=== PATIENT | male | born 1955 | race Caucasian/White ===

== ENCOUNTER 2016-11-08 18:20 | Emergency (ER) | payer MEDICARE ==
[2016-11-08] MEDS ORDERED: DIPH,PERTUS(ACELL)TETVAC-LF 0.5 ML VIAL IM ONE (18:38)
[2016-11-08 18:41] VITALS: BP 165/91; PULSE 84; RESP 16; TEMP 97.9
--- NOTE | 2016-11-08 18:51 | XR ---
EXAMINATION TYPE: XR hand complete LT DATE OF EXAM: 11/08/2016 CLINICAL HISTORY: Laceration from house scattered TECHNIQUE: Frontal, lateral and oblique images of the left hand are obtained. COMPARISON: None. FINDINGS: There is no acute fracture/dislocation evident in the left hand. The joint spaces in the l eft hand appear within normal limits. The overlying soft tissue appears unremarkable. No radiopaque foreign bodies are evident. Soft tissues appear normal. IMPRESSION: There is no acute fracture or dislocation in the left hand.
--- NOTE | 2016-11-08 19:09 | ED ---
Wound/Laceration HPI - General Stated Complaint: laceration Time Seen by Provider: 11/08/16 18:33 Source: patient, RN notes reviewed Mode of arrival: ambulatory Limitations: no limitations - History of Present Illness Initial Comments: 61-year-old male presents emergency Department chief complaint of laceration to the left thumb. Patient states he cut it on a tool today. Patient does not recall his last tetanus. Patient states he hasn't had any other symptoms at this. Patient states he has full range of motion of the thumb. Patient any history of this in the past. Patient states he is concerned due to symptoms. He should be evaluated. Patient denies any recent fever, chills, shortness of breath, chest pain, back pain, abdominal pain, nausea vomiting, numbness or tingling, dysuria or hematuria, constipation or diarrhea, headaches or visual changes, or any other current symptoms. - Related Data Home Medications Medication Instructions Recorded Confirmed tiZANidine [Zanaflex] 4 mg PO TID 03/27/15 04/08/16 traZODone HCL [Desyrel] 150 mg PO HS 03/27/15 04/08/16 Aspirin EC [Ecotrin] 162 mg PO DAILY 04/04/16 04/08/16 Atorvastatin [Lipitor] 80 mg PO HS 04/04/16 04/08/16 Clopidogrel [Plavix] 75 mg PO DAILY 04/04/16 04/08/16 HYDROcodone/APAP 10-325MG [Hart 1 tab PO Q6H PRN 04/04/16 04/08/16 10-325] Previous Rx's Medication Instructions Recorded Metoprolol Tartrate [Lopressor] 12.5 mg PO BID #60 tab 03/30/15 Nitroglycerin Sl Tabs [Nitrostat] 0.4 mg SUBLINGUAL Q5M PRN #25 tab 03/30/15 Allergies Allergy/AdvReac Type Severity Reaction Status Date / Time oxycodone HCl Allergy Unknown Verified 11/08/16 18:41 [From Roxicodone] Review of Systems ROS Statement: Those systems with pertinent positive or pertinent negative responses have been documented in the HPI. ROS Other: All systems not noted in ROS Statement are negative. Past Medical History Past Medical History: Myocardial Infarction ([place]), Osteoarthritis (OA), Pneumonia Additional Past Medical History / Comment(s): Carotid stenosis, DDD Last Myocardial Infarction Date:: 2014 History of Any Multi-Drug Resistant Organisms: None Reported Past Surgical History: Back Surgery, Heart Catheterization With Stent Additional Past Surgical History / Comment(s): Multiple back surgeries., pain procedures, cataract surg. Past Anesthesia/Blood Transfusion Reactions: No Reported Reaction Date of Last Stent Placement:: 2014 Past Psychological History: No Psychological Hx Reported Smoking Status: Current every day smoker Past Alcohol Use History: None Reported Past Drug Use History: None Reported - Past Family History Mother Family Medical History: Cancer Additional Family Medical History / Comment(s): knees replaced, breast CA Father Family Medical History: Cancer Additional Family Medical History / Comment(s): pulmonary fibrosis General Exam - General Exam Comments Initial Comments: General: The patient is awake and alert, in no distress, and does not appear acutely ill. Neck: The neck is supple, there is no tenderness. Cardiovascular: There is a regular rate and rhythm. No murmur, rub or gallop is appreciated. Respiratory: Lungs are clear to auscultation, respirations are non-labored, breath sounds are equal. No wheezes, stridor, rales, or rhonchi. Musculoskeletal: Sensation intact with 2+ pulses at the left upper extremity. Full range of motion of left hand and wrist. Patient does appear to have a 3 cm laceration over the left thumb. 5 out of 5 muscle strength testing. Less than 2 capillary refill. Neurological: CN II-XII intact, There are no obvious motor or sensory deficits. Coordination appears grossly intact. Speech is normal. Skin: Skin is warm and dry and no rashes or lesions are noted. Psychiatric: Normal mood and affect. Limitations: no limitations Course Vital Signs 11/08/16 18:37 Temperature 97.9 F Pulse Rate 84 Respiratory 16 Rate Blood Pressure 165/91 O2 Sat by Pulse 96 Oximetry Procedures - Procedures Initial comment: The skin was anesthetized with 1% lidocaine. The laceration was then cleansed with Betadine and irrigated with normal saline. The wound was inspected, and there was no evidence of injury to deep structures. No foreign body was noted in the wound. A total of 7 skin sutures were placed utilizing 5-0 nylon to a left thumb laceration that is 4 cm. Medical Decision Making - Medical Decision Making 61-year-old male presents emergency Department chief complaint of left thumb laceration. This time patient underwent suture care we discussed return parameters all panel patient's questions. He stated he understood and agreed with plan. He will be discharged. - Radiology Data Radiology results: report reviewed, image reviewed Disposition Clinical Impression: Laceration of left thumb Disposition: HOME SELF-CARE Condition: Stable Instructions: Laceration (ED) Additional Instructions: Please use medication as discussed. Please follow up with family doctor if symptoms have not improved over the next two days. Please return to the emergency room if your symptoms increase or worsen or for any other concerns. Please return to the emergency room in 8-10 days to have sutures removed. Please leave wound covered for the first 24-48 hours and then leave open to air after that time. Please use clean soap and water to clean the suture area to prevent scabbing over the top of your sutures. Please watch for any signs of infection which may include but not limited to increased pain, swelling, redness , fever or chills. Please return to the emergency room if any signs of infection do occur. Please return to the emergency room for any other concerns or complications. Referrals: Uzair Michaud DO [STAFF PHYSICIAN] - 1-2 days Time of Disposition: 19:09
== END 2016-11-08 19:18 | disposition home or self-care (01) ==
LOC: EC 18:20
DX: S61.012A Laceration without foreign body of left thumb without damage to nail, initial encounter (principal); I25.2 Old myocardial infarction; M19.90 Unspecified osteoarthritis, unspecified site; F17.200 Nicotine dependence, unspecified, uncomplicated; Z23 Encounter for immunization; Z79.02 Long term (current) use of antithrombotics/antiplatelets; Z79.899 Other long term (current) drug therapy; Z88.5 Allergy status to narcotic agent; Z79.82 Long term (current) use of aspirin; Z95.5 Presence of coronary angioplasty implant and graft; W45.8XXA Other foreign body or object entering through skin, initial encounter
CPT/HCPCS: 12002; 90471; 90715; 99283

== ENCOUNTER 2017-08-29 10:22 | Emergency (ER) | payer MEDICARE ==
[2017-08-29 10:27] VITALS: RESP 18
[2017-08-29] MEDS ORDERED: KETOROLAC 30 MG/ML 1 ML VIAL IVP STA (10:53)
[2017-08-29] MEDS ORDERED: SODIUM CHLORIDE 0.9% 1,000 ML IV STA ×2 (10:53)
[2017-08-29] MEDS ORDERED: ORPHENADRINE 30 MG/ML 2 ML VIAL IVP STA (10:54)
--- NOTE | 2017-08-29 10:59 | ED ---
Back Pain HPI - General Chief Complaint: Back Pain/Injury Stated Complaint: Back Pain Time Seen by Provider: 08/29/17 10:42 Source: patient, RN notes reviewed Limitations: no limitations - History of Present Illness Initial Comments: This is a 62-year-old male with a history of chronic low back pain and history of 3 prior surgeries also a history of heart disease with stent placement in the past who states he's had 4 days of low back pains got progressively worse is now over 10/10 severity sharp in nature and does radiate down both buttock. It also radiates to the legs. He does not recall any new injury coughing sneezing twisting turning. He states his pain medication at home was not helping. He states he has been offered a fusion in the past of the sacral region but has elected instead to do outpatient treatment including rhizotomies and epidurals. The pain gets worse with movement and is not relieved with rest he denies any loss of function however to his upper or lower extremities he has chronic constipation from his pain medication but did not does not have any new incontinence of urine or feces. His did note that his feet were swollen this morning. He was getting some pain radiating down into his calf. MD Complaint: back pain - Related Data Home Medications Medication Instructions Recorded Confirmed tiZANidine [Zanaflex] 4 mg PO TID 03/27/15 08/29/17 Aspirin EC [Ecotrin] 325 mg PO DAILY 04/04/16 08/29/17 Atorvastatin [Lipitor] 80 mg PO HS 04/04/16 08/29/17 Clopidogrel [Plavix] 75 mg PO DAILY 04/04/16 08/29/17 HYDROcodone/APAP 10-325MG [[place] 1 tab PO Q6H PRN 04/04/16 08/29/17 10-325] Gabapentin [Neurontin] 100 mg PO TID 08/29/17 08/29/17 traZODone HCL 150 mg PO HS 08/29/17 08/29/17 Previous Rx's Medication Instructions Recorded Nitroglycerin Sl Tabs [Nitrostat] 0.4 mg SUBLINGUAL Q5M PRN #25 tab 03/30/15 Cyclobenzaprine [Flexeril] 10 mg PO TID #14 tab 08/29/17 methylPREDNISolone Dose Pack 4 mg PO DIRECTED #21 package 04/06/18 [Medrol Dose Pack] Allergies Allergy/AdvReac Type Severity Reaction Status Date / Time oxycodone HCl Allergy Unknown Verified 08/29/17 10:39 [From Roxicodone] Review of Systems ROS Statement: Those systems with pertinent positive or pertinent negative responses have been documented in the HPI. ROS Other: All systems not noted in ROS Statement are negative. Past Medical History Past Medical History: Myocardial Infarction ([place]), Osteoarthritis (OA), Pneumonia Additional Past Medical History / Comment(s): Carotid stenosis, DDD Last Myocardial Infarction Date:: 2014 History of Any Multi-Drug Resistant Organisms: None Reported Past Surgical History: Back Surgery, Heart Catheterization With Stent Additional Past Surgical History / Comment(s): Multiple back surgeries., pain procedures, cataract surg. Past Anesthesia/Blood Transfusion Reactions: No Reported Reaction Date of Last Stent Placement:: 2014 Past Psychological History: No Psychological Hx Reported Smoking Status: Current every day smoker Past Alcohol Use History: None Reported Past Drug Use History: None Reported - Past Family History Mother Family Medical History: Cancer Additional Family Medical History / Comment(s): knees replaced, breast CA Father Family Medical History: Cancer Additional Family Medical History / Comment(s): pulmonary fibrosis General Exam - General Exam Comments Initial Comments: This is a well-developed well-nourished awake alert oriented 3 male Limitations: no limitations General appearance: alert, anxious, in distress Head exam: Present: atraumatic, normocephalic, normal inspection Eye exam: Present: normal appearance, PERRL, EOMI. Absent: scleral icterus, conjunctival injection, periorbital swelling ENT exam: Present: normal exam, mucous membranes moist Neck exam: Present: normal inspection. Absent: tenderness, meningismus, lymphadenopathy Respiratory exam: Present: normal lung sounds bilaterally. Absent: respiratory distress, wheezes, rales, rhonchi, stridor Cardiovascular Exam: Present: regular rate, normal rhythm, normal heart sounds. Absent: systolic murmur, diastolic murmur, rubs, gallop, clicks GI/Abdominal exam: Present: soft, normal bowel sounds. Absent: distended, tenderness, guarding, rebound, rigid Rectal exam: Present: deferred Extremities exam: Present: normal inspection, full ROM, normal capillary refill , other (No palpable cords I do not appreciate edema on my exam.). Absent: tenderness, pedal edema, joint swelling, calf tenderness Back exam: Present: normal inspection, tenderness, muscle spasm, paraspinal tenderness, other (It is both gluteus muscles.). Absent: full ROM, vertebral tenderness Neurological exam: Present: alert, oriented X3, CN II-XII intact Psychiatric exam: Present: normal affect, normal mood Skin exam: Present: warm, dry, intact, normal color. Absent: rash Course Vital Signs 08/29/17 08/29/17 10:25 12:44 Temperature 97.2 F L Pulse Rate 75 63 Respiratory 18 18 Rate Blood Pressure 138/65 116/57 O2 Sat by Pulse 99 97 Oximetry Medical Decision Making - Medical Decision Making I did reassess the patient several occasions he is finally getting some relief. He will be discharged home he is follow-up with his doctor for further treatment. Patient does have adequate pain medication at home we also put some muscle relaxers and a steroid Dosepak - Lab Data Result diagrams: 08/29/17 11:00 08/29/17 11:00 Lab Results 08/29/17 08/29/17 08/29/17 Range/Units 11:00 11:00 11:00 WBC 7.4 (3.8-10.6) k/uL RBC 4.20 L (4.30-5.90) m/uL Hgb 12.8 L (13.0-17.5) gm/dL Hct 37.4 L (39.0-53.0) % MCV 89.1 (80.0-100.0) fL MCH 30.6 (25.0-35.0) pg MCHC 34.3 (31.0-37.0) g/dL RDW 12.8 (11.5-15.5) % Plt Count 153 (150-450) k/uL Neutrophils % 65 % Lymphocytes % 28 % Monocytes % 4 % Eosinophils % 1 % Basophils % 1 % Neutrophils # 4.8 (1.3-7.7) k/uL Lymphocytes # 2.1 (1.0-4.8) k/uL Monocytes # 0.3 (0-1.0) k/uL Eosinophils # 0.1 (0-0.7) k/uL Basophils # 0.0 (0-0.2) k/uL D-Dimer 0.53 (<0.60) mg/L FEU Sodium 140 (137-145) mmol/L Potassium 4.6 (3.5-5.1) mmol/L Chloride 107 (98-107) mmol/L Carbon Dioxide 23 (22-30) mmol/L Anion Gap 10 mmol/L BUN 20 (9-20) mg/dL Creatinine 1.12 (0.66-1.25) mg/dL Est GFR (CKD-EPI)AfAm 82 (>60 ml/min/1.73 sqM) Est GFR (CKD-EPI)NonAf 71 (>60 ml/min/1.73 sqM) Glucose 88 (74-99) mg/dL Calcium 9.0 (8.4-10.2) mg/dL Magnesium 2.1 (1.6-2.3) mg/dL Total Bilirubin 0.2 (0.2-1.3) mg/dL AST 19 (17-59) U/L ALT 25 (21-72) U/L Alkaline Phosphatase 103 (38-126) U/L Total Protein 6.1 L (6.3-8.2) g/dL Albumin 3.6 (3.5-5.0) g/dL Disposition Clinical Impression: Mechanical back pain, Sciatica, Acute exacerbation of chronic low back pain Disposition: HOME SELF-CARE Condition: Good Instructions: Acute Low Back Pain (ED), Chronic Back Pain (ED), Sciatica (ED) Prescriptions: Cyclobenzaprine [Flexeril] 10 mg PO TID #14 tab methylPREDNISolone Dose Pack [Medrol Dose Pack] 4 mg PO DIRECTED #21 package Referrals: Oseas Hancock DO [Primary Care Provider] - 1-2 days
[2017-08-29 11:39] LABS: Basophils % (A) 1 %; Eosinophils # (A) 0.1 k/uL (0-0.7); Eosinophils % (A) 1 %; HCT 37.4 % (39.0-53.0); HGB 12.8 gm/dL (13.0-17.5); Lymphocytes # (A) 2.1 k/uL (1.0-4.8); Lymphocytes % (A) 28 %; MCH 30.6 pg (25.0-35.0); MCHC 34.3 g/dL (31.0-37.0); MCV 89.1 fL (80.0-100.0); Mean Platelet Volume 6.9; Monocytes # (A) 0.3 k/uL (0-1.0); Monocytes % (A) 4 %; Neutrophils # (A) 4.8 k/uL (1.3-7.7); Neutrophils % (A) 65 %; Platelet Count 153 k/uL (150-450); RDW 12.8 % (11.5-15.5); WBC 7.4 k/uL (3.8-10.6)
[2017-08-29 11:53] LABS: Albumin 3.6 g/dL (3.5-5.0); Magnesium 2.1 mg/dL (1.6-2.3); Potassium 4.6 mmol/L (3.5-5.1); Total Bilirubin 0.2 mg/dL (0.2-1.3); Total Protein 6.1 g/dL (6.3-8.2)
[2017-08-29] MEDS ORDERED: DEXAMETHASONE SOD PHOSPHATE 10 MG/ML 1 ML VIAL IV STA (12:25)
[2017-08-29] MEDS ORDERED: fentaNYL (PF) 50 MCG/ML 2 ML AMP IV STA (12:26)
[2017-08-29 13:42] VITALS: BP 133/61; PULSE 72; TEMP 97.8
== END 2017-08-29 13:45 | disposition home or self-care (01) ==
LOC: EC 10:22
DX: M54.40 Lumbago with sciatica, unspecified side (principal); M79.89 Other specified soft tissue disorders; F17.200 Nicotine dependence, unspecified, uncomplicated; M19.90 Unspecified osteoarthritis, unspecified site; I25.2 Old myocardial infarction; K59.00 Constipation, unspecified; M62.830 Muscle spasm of back; Z87.39 Personal history of other diseases of the musculoskeletal system and connective tissue; Z88.5 Allergy status to narcotic agent; Z79.82 Long term (current) use of aspirin; Z79.899 Other long term (current) drug therapy; Z79.02 Long term (current) use of antithrombotics/antiplatelets; Z98.890 Other specified postprocedural states
CPT/HCPCS: 99283; 96374; 96375 ×3; 96361; 36415; 85379; 80053; 83735; 85025; J1100; J2360; J3010; J1885

== ENCOUNTER → 2017-09-04 | Outpatient (CLI) | payer MEDICARE ==
--- NOTE | 2017-09-05 07:24 | MR ---
EXAMINATION TYPE: MR lumbar spine wo/w con DATE OF EXAM: 09/04/2017 COMPARISON: MRI lumbar spine November 21, 2005. HISTORY: HNP and Lumbar radiculopathy per order. Low back pain for 10 days with history of 3 prior vazquez rgeries most recently 2013 TECHNIQUE: Multiplanar, multisequence images of the lumbar spine is performed without and with IV contrast, util izing 9 mL intravenous Gadavist FINDINGS: Sagittal images of the lumbar spine show vertebral body heights to appear satisfactory. The re is slight grade 1 retrolisthesis of L1 on L2. On current study there is artifact from left-sided p osterior fusion hardware L5-S1 level. There is hyperintense artificial disc material L4-L5 level. The re is multilevel disc desiccation. There is multilevel disc space narrowing with relative sparing of L2-L3 level. Most prominent disc space narrowing is moderate to advanced L1-L2 level. There are poste rior disc herniations effacing anterior thecal sac at upper lumbar levels on sagittal images. The co nus medullaris is normal in position and signal ending at superior L1 level. There is marked overall heterogeneity with endplate changes noted lower lumbar levels. No suspicious enhancement is identifie d. Axial images at the T12-L1 level shows new broad disc bulge mildly effacing anterior thecal sac, bila teral neural foramina are patent. Axial images at L1-L2 level show more moderate broad disc bulge effacing anterior thecal sac and caus ing mild to moderate bilateral inferior neural foraminal narrowing new from prior study. Axial images at L2-L3 level show moderate broad disc bulge and mild facet degenerative changes bilate rally. There is effacement of the anterior thecal sac. There is asymmetric mild right-sided anterior inferior neural foraminal narrowing. Left-sided neural foramen is patent. Axial images at L3-L4 level show advanced facet degenerative changes bilaterally. There is posterior and left-sided surgical change with scar tissue present. Artificial disc material of low intensity at this level is felt present. Bilateral neural foramina remain patent. Spinal canal is grossly preserv ed. Axial images at L4-L5 level show posterior decompression. There is partial visualization of artifact from left-sided fusion hardware. Spinal canal is grossly preserved. Bilateral neural foramina are will ssly patent on sagittal images. Axial images at L5-S1 level show evidence of posterior decompression. There is artifact from artifici al disc material posteriorly. Spinal canal is grossly preserved. Right-sided neural foramina is moder ately narrowed inferiorly due to round 1.0 cm T1 and T2 hyperintense area axial image 8 correlating w ith sagittal image 10 without enhancement possible large osteophyte or bony projection. Left-sided ne ural foramen is patent. There is 1.0 cm simple appearing cyst posteriorly right kidney axial image 28 without enhancement. IMPRESSION: Extensive postsurgical changes mid to lower lumbar spine. Fairly satisfactory preservatio n of spinal canal. New degenerative changes upper to mid lumbar levels are present as detailed above. Attention to right L5-S1 level where suspect osteophyte is encroaching on right neural foramina.
== END | disposition home or self-care (01) ==
LOC: RADMRIMAIN 19:26
PROVIDERS: ATTEND Anesthesiology Pain Medicine
DX: M99.73 Connective tissue and disc stenosis of intervertebral foramina of lumbar region (principal); M51.26 Other intervertebral disc displacement, lumbar region; M43.16 Spondylolisthesis, lumbar region; M51.36 Other intervertebral disc degeneration, lumbar region; M47.26 Other spondylosis with radiculopathy, lumbar region; M54.5 Low back pain; G89.29 Other chronic pain; Z79.899 Other long term (current) drug therapy
CPT/HCPCS: 82565; 84520; 72158; 36415; A9581

== ENCOUNTER → 2018-11-25 | Outpatient (CLI) | payer OTHER ==
--- NOTE | 2018-11-25 07:50 | US ---
EXAMINATION TYPE: US abdomen complete DATE OF EXAM: 11/25/2018 COMPARISON: NONE CLINICAL HISTORY: R10.9 ABD PAIN. EXAM MEASUREMENTS: Liver Length: 17.6 cm Gallbladder Wall: 0.2 cm CBD: 0.5 cm Spleen: 12.5 cm Right Kidney: 11.7 x 4.3 x 4.6 cm Left Kidney: 10.8 x 4.7 x 4.4 cm Pancreas: Pancreatic head and tail by bowel gas. Duct visualized measuring 0.3 cm Liver: Slightly echogenic, measuring upper limits of normal. Gallbladder: wnl Evidence for sonographic Doherty's sign: No CBD: wnl Spleen: wnl Right Kidney: No hydronephrosis. Cystic area lower pole measuring 0.9 x 1.0 x 0.8 cm Left Kidney: No hydronephrosis. Cystic area visualized inferior 0.8 x 1.0 x 0.9 cm Upper IVC: wnl Abd Aorta: wnl The liver is echogenic. The intrahepatic portion of the IVC and proximal abdominal aorta are within normal limits. There is no evidence of cholelithiasis. Common bile duct is unremarkable. The splee n is unremarkable. Kidneys are symmetric and free of hydronephrosis. IMPRESSION: 1. Main pancreatic ductal prominence. Pancreatic head and tail are secured by bowel gas. Dynamic enha nced CT abdomen could ensure no underlying pancreatic head mass rating ductal prominence. 2. Bilateral benign-appearing renal cysts. No hydronephrosis of either kidney. 3. Hepatic echotexture is slightly hyperechoic, most commonly related to hepatic steatosis, overall a ppearing mild in degree. Correlate with liver function tests.
== END | disposition home or self-care (01) ==
LOC: RADUSWWP 06:50
DX: N28.1 Cyst of kidney, acquired (principal)
CPT/HCPCS: 76700

== ENCOUNTER → 2018-12-18 | Outpatient (CLI) | payer OTHER ==
--- NOTE | 2018-12-18 15:15 | CT ---
EXAMINATION TYPE: CT abdomen w con DATE OF EXAM: 12/18/2018 COMPARISON: Ultrasound dated 11/25/2018 HISTORY: Abnormal ultrasound. CT DLP: 882.5 mGycm CONTRAST: CT scan of the abdomen is performed with Oral Contrast and with IV Contrast, patient injected with 80 ml mL of Isovue 300. FINDINGS: LUNG BASES-: No visible nodule. No infiltrate. LIVER/GB: No calcified gallstones. No space occupying hepatic lesion. Biliary tree is of normal ca liber. PANCREAS: No inflammation. No distinct mass. SPLEEN: No splenic enlargement. No lesion seen. ADRENALS: No nodule. No thickening. KIDNEYS/BLADDER: No hydronephrosis. No nephrolithiasis. No distinct renal mass. Urinary bladder g rossly unremarkable. BOWEL: Normal appendix. Normal bowel caliber. No inflammation. LYMPH NODES: No greater than 1cm abdominal or pelvic lymph nodes are appreciated. AORTA: No significant abnormality. OSSEOUS STRUCTURES: Postoperative changes lumbar spine. OTHER: No significant additional abnormality is seen. IMPRESSION: 1. No pancreatic mass identified. No distinct abnormality seen at this time.
== END | disposition home or self-care (01) ==
LOC: RADCTMAIN 14:14
DX: R93.5 Abnormal findings on diagnostic imaging of other abdominal regions, including retroperitoneum (principal)
CPT/HCPCS: 82565; 84520; 74160; 36415; Q9967

== ENCOUNTER → 2020-05-01 | Outpatient (CLI) | payer OTHER ==
--- NOTE | 2020-05-02 08:01 | MR ---
EXAMINATION TYPE: MR lumbar spine wo con DATE OF EXAM: 05/01/2020 COMPARISON: MRI lumbar spine September 04, 2017. CT abdomen December 18, 2018. HISTORY: Lower Back pain, Goes into left leg/Thigh. Sporadic since the summer, multiple back surgerie s in the past. TECHNIQUE: Multiplanar, multisequence imaging of the lumbar spine is performed without IV contrast. FINDINGS: Sagittal images of the lumbar spine show vertebral body heights to appear satisfactory. The re is grade 1 retrolisthesis of L1 on L2 redemonstrated and more subtle grade 1 retrolisthesis L2 on L3 redemonstrated. There is persistent artifact from left-sided posterior fusion hardware L5-S1 level . There is hyperintense artificial disc material L4-L5 level redemonstrated. There is hypointense art ifact from disc material at L3-L4 and L5-S1 levels noted. There is disc desiccation with advanced dis c space narrowing L1-L2 level redemonstrated having heterogeneous mosaic type II endplate changes and moderate spurring. There is more prominent posterior disc herniations effacing anterior thecal sac a t L2-L3 level with heterogeneous more type I endplate changes. The conus medullaris remains normal i n position and signal ending at mid L1 level. There is marked overall heterogeneity redemonstrated. Axial images at the T12-L1 level shows mild broad disc bulge minimally effacing anterior thecal sac, bilateral neural foramina are patent. No significant change from prior. Axial images at L1-L2 level show spondylolisthesis and moderate broad disc bulge effacing anterior th ecal sac and causing mild to moderate left greater than right bilateral inferior neural foraminal ana rowing, no significant change from prior study. Axial images at L2-L3 level show moderate broad disc bulge and mild to moderate facet degenerative ch anges bilaterally. There is more prominent effacement of the anterior thecal sac. There is moderate r ight-sided anterior inferior neural foraminal narrowing and mild left-sided neural foramen is patent. Interval progression from prior MRI noted. Axial images at L3-L4 level redemonstrated advanced facet degenerative changes bilaterally. There is posterior and left-sided surgical change with scar tissue present. Artificial disc material of low in tensity at this level is felt present. Bilateral neural foramina remain patent. Spinal canal is gross ly preserved. Axial images at L4-L5 level show posterior decompression. There is partial visualization of artifact from left-sided fusion hardware. Spinal canal is grossly preserved. Bilateral neural foramina remain grossly patent on sagittal images. Axial images at L5-S1 level show evidence of posterior decompression. There is artifact from artifici al disc material posteriorly. Spinal canal is grossly preserved. Right-sided neural foramina is moder ately narrowed inferiorly due to round 1.0 cm T1 and T2 hyperintense area axial image 8 correlating w ith sagittal image 10 without enhancement possible large osteophyte or bony projection. Left-sided ne ural foramen is patent. Diverticula in the visualized sigmoid colon are noted. IMPRESSION: Extensive postsurgical changes mid to lower lumbar spine. Fairly satisfactory preservatio n of spinal canal. Worsening degenerative changes L2-L3 level otherwise no significant change from pr ior MRI.
== END | disposition home or self-care (01) ==
LOC: RADMRIMAIN 16:18
PROVIDERS: ATTEND Nurse Practitioner Acute Care
DX: M47.816 Spondylosis without myelopathy or radiculopathy, lumbar region (principal); Z98.1 Arthrodesis status; Z88.8 Allergy status to other drugs, medicaments and biological substances
CPT/HCPCS: 72148

== ENCOUNTER → 2020-06-30 | Outpatient (CLI) | payer MEDICARE ==
--- NOTE | 2020-07-01 05:44 | CT ---
EXAMINATION TYPE: CT abdomen pelvis wo/w con DATE OF EXAM: 06/30/2020 COMPARISON: 12/18/2018 HISTORY: RLQ pain CT DLP: 1934.6 mGycm Automated exposure control for dose reduction was used. CONTRAST: Performed without and with IV Contrast, patient injected with 100 mL of Isovue 300. There is oral contrast also. Noncontrast images show normal renal stone. Lung bases show mild subsegmental atelectasis and scarring in the right lower lobe. There is no pleur al effusion. Heart size is normal. There is no pericardial effusion. Liver spleen pancreas stomach gallbladder appear normal. Bile ducts are not dilated. There is no adrenal mass. Kidneys show satisfactory contrast opacification. There is no hydronephrosi s. There are small renal cortical cysts that measure up to 1 cm. Delayed images show normal renal exc retion. Ureters are not dilated. There is no retroperitoneal adenopathy. Appendix appears normal. Sma ll bowel pattern is normal. Bladder distends smoothly. There is no inguinal hernia. There is no free fluid in the pelvis. There are multiple sigmoid diverticula. There is no sign of diverticulitis. The lumbar vertebra have normal alignment. There is multilevel spondylotic changes. There is posterior fu arline surgery at L5-S1. The bony pelvis appears intact. IMPRESSION: Normal appendix. Colonic diverticulosis without diverticulitis. No adverse change compared to old jennie m.
== END | disposition home or self-care (01) ==
LOC: RADCTMAIN 14:46
PROVIDERS: ATTEND Family Medicine
DX: K57.30 Diverticulosis of large intestine without perforation or abscess without bleeding (principal)
CPT/HCPCS: 74178; Q9967

== ENCOUNTER 2020-08-04 10:05 | Day surgery (SDC) | payer BC, OTHER ==
[2020-08-03 12:09] VITALS: BMI 27.6
[2020-08-04 10:42] VITALS: RESP 16; TEMP 97.6
[2020-08-04] MEDS ORDERED: LACTATED RINGERS 1,000 ML IV ONE (10:42)
[2020-08-04] MEDS ORDERED: LIDOCAINE 1% (10MG/ML) FOR IV START INTRADERMA ONE (10:49)
[2020-08-04] MEDS ORDERED: fentaNYL (PF) 50 MCG/ML 2 ML AMP ONE (11:29)
[2020-08-04] MEDS ORDERED: LIDOCAINE 1% INJ 10MG/ML (20 ML MDV) ONE (11:29)
[2020-08-04] MEDS ORDERED: PROPOFOL 10 MG/ML 20 ML VIAL IV ONE (11:29)
--- NOTE | 2020-08-04 11:49 | P.PCN ---
Date of Procedure: 08/04/20 Procedure(s) Performed: BRIEF HISTORY: Patient is a 65-year-old pleasant male scheduled for an elective colonoscopy as a part of evaluation of right lower abdominal pain and change in bowel habits for the last [address] of abdomen showed sigmoid diverticulosis. PROCEDURE PERFORMED: Colonoscopy. PREOPERATIVE DIAGNOSIS: Right lower quadrant abdominal pain and change in bowel habits. IV sedation per Anesthesia. PROCEDURE: After informed consent was obtained, the patient, was brought into the endoscopy unit. IV sedation was administered by Anesthesia under continuous monitoring. Digital rectal examination was normal. Initially the Olympus CF-160 flexible video colonoscope was then inserted in the rectum, gradually advanced into the cecum without any difficulty. Careful examination was performed as the scope was gradually being withdrawn. Ileocecal valve and the appendiceal orifice were visualized and appeared normal. Prep was fair . Terminal ileum was intubated and 20 cm visualized that appeared normal. Mucosa of the cecum, ascending colon, transverse colon, descending colon, sigmoid colon, and rectum appeared normal. Scattered sigmoid diverticulosis seen. Retroflexion was performed in the rectum and no lesions were seen. The patient tolerated the procedure well. IMPRESSION: Normal-appearing colon from rectum to cecum no evidence of colitis or colorectal neoplasia . Normal-appearing terminal ileum Scattered left sided diverticulosis RECOMMENDATIONS: Findings of this examination were discussed with the patient as well as his family. He was advised to have a repeat screening colonoscopy in 10 years. In the meantime he was advised to remain on a high-fiber diet and take fiber supplements a regular basis.
[2020-08-04 12:06] VITALS: BP 119/68; PULSE 78
== END 2020-08-04 12:22 | disposition home or self-care (01) ==
LOC: ORWHC2ENDO 10:05
PROVIDERS: ATTEND Internal Medicine Gastroenterology
DX: K57.30 Diverticulosis of large intestine without perforation or abscess without bleeding (principal); R10.31 Right lower quadrant pain; I25.2 Old myocardial infarction; E78.5 Hyperlipidemia, unspecified; J44.9 Chronic obstructive pulmonary disease, unspecified; G47.33 Obstructive sleep apnea (adult) (pediatric); F17.200 Nicotine dependence, unspecified, uncomplicated; N18.30 Chronic kidney disease, stage 3 unspecified; Z79.899 Other long term (current) drug therapy; Z79.82 Long term (current) use of aspirin; Z95.5 Presence of coronary angioplasty implant and graft; Z79.891 Long term (current) use of opiate analgesic
CPT/HCPCS: 45378; J2001; J3010; J2704

== ENCOUNTER → 2020-08-24 | Outpatient (CLI) | payer MEDICARE ==
[2020-08-24 09:11] LABS: Calcium 8.9 mg/dL (8.4-10.2); Potassium 4.7 mmol/L (3.5-5.1)
[2020-08-24 10:04] LABS: Basophils % (A) 1 %; Eosinophils # (A) 0.1 k/uL (0-0.7); Eosinophils % (A) 2 %; HCT 35.4 % (39.0-53.0); HGB 12.9 gm/dL (13.0-17.5); Lymphocytes # (A) 1.8 k/uL (1.0-4.8); Lymphocytes % (A) 26 %; MCH 33.7 pg (25.0-35.0); MCHC 36.4 g/dL (31.0-37.0); MCV 92.6 fL (80.0-100.0); Mean Platelet Volume 7.4; Monocytes # (A) 0.3 k/uL (0-1.0); Monocytes % (A) 4 %; Neutrophils # (A) 4.5 k/uL (1.3-7.7); Neutrophils % (A) 66 %; Platelet Count 148 k/uL (150-450); RBC 3.82 m/uL (4.30-5.90); WBC 6.8 k/uL (3.8-10.6)
== END | disposition home or self-care (01) ==
LOC: LABPAT 08:16
PROVIDERS: ATTEND Urology
DX: Z01.818 Encounter for other preprocedural examination (principal); N43.3 Hydrocele, unspecified; Z79.899 Other long term (current) drug therapy
CPT/HCPCS: 36415; 80048; 85025

== ENCOUNTER 2020-08-31 07:23 | Day surgery (SDC) | payer MEDICARE ==
[2020-08-25 13:11] VITALS: BMI 26.9
--- NOTE | 2020-08-29 15:25 | P.GSHP ---
History of Present Illness H&P Date: 08/25/20 Chief Complaint: Right scrotal swelling The patient is a 65-year-old white male with a long history of orchalgia. He currently reports right or calculi radiating to the right lower quadrant, associated with right scrotal swelling. He has previously undergone a right inguinal hernia repair. - Genitourinary (Male) Genitourinary: Reports nocturia Past Medical History Past Medical History: Coronary Artery Disease (CAD), COPD, Hyperlipidemia, Myocardial Infarction ([place]), Osteoarthritis (OA), Pneumonia Additional Past Medical History / Comment(s): current abdominal pain, hx diverticuli, Carotid stenosis, DDD Last Myocardial Infarction Date:: 2014 History of Any Multi-Drug Resistant Organisms: None Reported Past Surgical History: Back Surgery, Heart Catheterization With Stent, Hernia Repair, Orthopedic Surgery Additional Past Surgical History / Comment(s): back sx X4, pain procedures, cataract surg. rt carpal tunnel, sx berna knees Past Anesthesia/Blood Transfusion Reactions: No Reported Reaction Date of Last Stent Placement:: 2014 Smoking Status: Current every day smoker - Past Family History Mother Family Medical History: Cancer Additional Family Medical History / Comment(s): knees replaced, breast CA Father Family Medical History: Cancer Additional Family Medical History / Comment(s): pulmonary fibrosis Medications and Allergies Home Medications Medication Instructions Recorded Confirmed Type tiZANidine [Zanaflex] 4 mg PO TID 03/27/15 08/25/20 History Nitroglycerin Sl Tabs [Nitrostat] 0.4 mg SUBLINGUAL Q5M PRN #25 tab 03/30/15 08/25/20 Rx Atorvastatin [Lipitor] 80 mg PO HS 04/04/16 08/25/20 History HYDROcodone/APAP 10-325MG [[place] 2 tab PO Q6H PRN 04/04/16 08/25/20 History 10-325] traZODone HCL 150 mg PO HS 08/29/17 08/25/20 History Aspirin [Adult Low Dose Aspirin EC] 162 mg PO DAILY 08/03/20 08/25/20 History Gabapentin [Neurontin] 400 mg PO TID 08/03/20 08/25/20 History Albuterol Sulfate [Proventil Hfa] 1 puff INHALATION Q4-6H PRN 08/25/20 08/25/20 History Ipratropium [place] [Atrovent Hfa] 2 puff INHALATION QID 08/25/20 08/25/20 History Allergies Allergy/AdvReac Type Severity Reaction Status Date / Time oxycodone HCl Allergy Unknown Verified 08/25/20 12:48 [From Roxicodone] Surgical - Exam - General well developed, well nourished, no distress - Respiratory normal respiratory effort, clear to auscultation - Cardiovascular Rhythm: regular Abnormal Heart Sounds: no systolic murmur, no diastolic murmur, no rub, no S3 Gallop, no S4 Gallop, no click, no other - Abdomen Abdomen: soft, non tender, no guarding, no rigid, no rebound - Genitourinary normal penis with no external lesions, testicles non-tender right: scrotal mass/hydrocele (Mild to moderate right hydrocele) - Rectum Rectum: normal sphincter tone, no masses - Psychiatric oriented to time, oriented to person, oriented to place, speech is normal, memory intact Assessment and Plan (1) Hydrocele Status: Acute Code(s): N43.3 - HYDROCELE, UNSPECIFIED SNOMED Code(s): 01018234 Plan: I had a lengthy discussion with the patient regarding his right hydrocele, and the fact that he is currently experiencing right orchialgia. I explained to him that there are numerous causes of orchalgia, and that it cannot be automatically assumed that the orchalgia is the result of the hydrocele. However, he states that the hydrocele increases the size of the right hemiscrotum, and that this sometimes gets in the way of activities. It was ultimately decided that he would undergo a right hydrocelectomy, with the understanding that his pain may p ersist. The procedure was reviewed in detail with the patient, and he was made aware of potential risks which include anesthesia, bleeding, infection, testicular injury, and recurrent hydrocele.
[~2020-08-31 07:23] MED LIST: DEXAMETHASONE SOD PHOSPHATE 4 MG/ML 1 ML VIAL IV ONE; LACTATED RINGERS 1,000 ML IV SCH; ONDANSETRON 4 MG/2 ML VIAL IVP ONE; fentaNYL (PF) 50 MCG/ML 2 ML AMP IV PRN
[2020-08-31] MEDS ORDERED: LIDOCAINE 1% (10MG/ML) FOR IV START INTRADERMA ONE (08:07)
[2020-08-31] MEDS ORDERED: PROPOFOL 10 MG/ML 20 ML VIAL IV ONE (09:04)
[2020-08-31] MEDS ORDERED: SUCCINYLCHOLINE CHLORIDE VIAL 200 MG/10 ML VIAL IV ONE (09:04)
[2020-08-31] MEDS ORDERED: ePHEDrine SULFATE/0.9% NACL/PF 50 MG/5 ML SYRINGE IV ONE (09:04)
[2020-08-31] MEDS ORDERED: fentaNYL (PF) 50 MCG/ML 2 ML AMP ONE (09:04)
[2020-08-31] MEDS ORDERED: MIDAZOLAM 2 MG/2 ML VIAL ONE (09:04)
[2020-08-31] MEDS ORDERED: LIDOCAINE 1% INJ 10MG/ML (20 ML MDV) ONE (09:04)
[2020-08-31] MEDS ORDERED: BUPIVACAINE (PF) 0.5% 30 ML VIAL SQ ONE (09:45)
--- NOTE | 2020-08-31 10:00 | P.OP ---
Date of Procedure: 08/31/20 Preoperative Diagnosis: Noncommunicating right hydrocele Postoperative Diagnosis: Same Procedure(s) Performed: Right hydrocele repair Anesthesia: RACQUEL Surgeon: Juan Robert Estimated Blood Loss (ml): 10 IV fluids (ml): 600 Pathology: none sent Condition: stable Disposition: PACU Indications for Procedure: The patient is a 65-year-old white male with a long history of orchalgia. He currently reports right orchalgia radiating to the right lower quadrant, associated with right scrotal swelling. He has previously undergone a right inguinal hernia repair. He has been found to have a right hydrocele and is aware that his orchialgia may be unrelated to the hydrocele, but he has elected to undergo hydrocele repair. Operative Findings: Non-communicating right hydrocele. Morphologically normal testicle and epididymis. Description of Procedure: The patient was taken to the operating room and placed in the supine position. The external genitalia was prepped and draped sterilely. The scalpel was used to make a right anterior scrotal incision along Oscar's lines. The Bovie electrocautery was used to incise the underlying dartos fascia, down to the hydrocele sac. The hydrocele was opened, and straw-colored fluid was drained. The incision and the hydrocele sac was then extended, allowing the testicle to be delivered through the wound. The testicle appeared morphologically normal. The hydrocele sac was not thickened. The hydrocele sac was imbricated by placing 3-0 Vicryl sutures circumferentially in interrupted fashion. Hemostasis was excellent. The appendix testis was excised. The spermatic cord was infiltrated with 0.5% Marcaine. The testicle was returned to the hemiscrotum. Marcaine was injected subcutaneously. The dartos fascia was closed using 3-0 Vicryl suture in a running fashion. The skin was closed using 3-0 chromic suture in a running fashion. Surgical fluffs were placed over the incision, followed by scrotal support. All sponge and needle counts were correct. The patient tolerated the procedure well was taken to the recovery room in stable condition.
[2020-08-31 10:10] VITALS: RESP 16; TEMP 97.1
[2020-08-31 11:09] VITALS: BP 130/63; PULSE 86
== END 2020-08-31 11:28 | disposition home or self-care (01) ==
LOC: OR 07:23
PROVIDERS: ATTEND Urology
DX: N43.3 Hydrocele, unspecified (principal); I25.10 Atherosclerotic heart disease of native coronary artery without angina pectoris; J44.9 Chronic obstructive pulmonary disease, unspecified; E78.5 Hyperlipidemia, unspecified; I25.2 Old myocardial infarction; M19.90 Unspecified osteoarthritis, unspecified site; Z87.01 Personal history of pneumonia (recurrent); Z87.19 Personal history of other diseases of the digestive system; I65.29 Occlusion and stenosis of unspecified carotid artery; Z95.5 Presence of coronary angioplasty implant and graft; Z98.890 Other specified postprocedural states; Z98.49 Cataract extraction status, unspecified eye; F17.200 Nicotine dependence, unspecified, uncomplicated; Z80.3 Family history of malignant neoplasm of breast; Z80.2 Family history of malignant neoplasm of other respiratory and intrathoracic organs; Z79.82 Long term (current) use of aspirin; Z79.891 Long term (current) use of opiate analgesic; Z88.5 Allergy status to narcotic agent
CPT/HCPCS: 55060; J2250; J0330; J1100; J0690; J2405; J2001; J3010; J2704

== ENCOUNTER 2022-04-22 11:06 | Emergency (ER) | payer OTHER, BC ==
[2022-04-22 11:15] VITALS: TEMP 98.3
[2022-04-22] MEDS ORDERED: IPRATROPIUM-ALBUTEROL 3 ML NEB INHALATION STA (11:37)
[2022-04-22] MEDS ORDERED: SODIUM CHLORIDE 0.9% 500 ML 500 ML IV STA (11:37)
[2022-04-22] MEDS ORDERED: methylPREDNISolone SOD SUCCI 125 MG/2 ML VIAL IV STA (11:37)
--- NOTE | 2022-04-22 11:38 | ED ---
SOB HPI - General Chief Complaint: Shortness of Breath Stated Complaint: SOB Time Seen by Provider: 04/22/22 11:25 Source: patient, RN notes reviewed, old records reviewed Mode of arrival: ambulatory Limitations: no limitations - History of Present Illness Initial Comments: This is a well-appearing 67-year-old male that presents to the emergency room [facility] complaints of shortness of breath and cough since Friday after using a blower to clean out his barn of cat dander. Symptoms wqrsening over the past couple of days causing "diaphragm" pain and chest tightness. States developed a thick mucoid productive cough that is green in color. Patient does have a history of coronary artery disease, COPD VT with stents. Denies any fevers, no nausea vomiting or diarrhea. States he is still smoking 1-2 packs a day. MD Complaint: shortness of breath, cough -: days(s) (6) Severity scale (1-10): 5 Quality: other (tight) Consistency: constant Improves With: nothing Worsens With: coughing Known History Of: COPD, asthma Context: allergen exposure, other (smoking) Associated Symptoms: chest pain (tightness) - Related Data Home Medications Medication Instructions Recorded Confirmed tiZANidine [Zanaflex] 4 mg PO TID 03/27/15 08/31/20 Atorvastatin [Lipitor] 80 mg PO HS 04/04/16 08/31/20 HYDROcodone/APAP 10-325MG [[place] 2 tab PO Q6H PRN 04/04/16 08/31/20 10-325] traZODone HCL 150 mg PO HS 08/29/17 08/31/20 Aspirin [Adult Low Dose Aspirin EC] 162 mg PO DAILY 08/03/20 08/31/20 Gabapentin [Neurontin] 400 mg PO TID 08/03/20 08/31/20 Albuterol Sulfate [Proventil Hfa] 1 puff INHALATION Q4-6H PRN 08/25/20 08/31/20 Ipratropium [place] [Atrovent Hfa] 2 puff INHALATION QID 08/25/20 08/31/20 Tamsulosin HCl [Flomax] 1 tab PO DAILY 08/31/20 08/31/20 Previous Rx's Medication Instructions Recorded Nitroglycerin Sl Tabs [Nitrostat] 0.4 mg SUBLINGUAL Q5M PRN #25 tab 03/30/15 HYDROcodone/APAP 10-325MG [[place] 1 tab PO Q4HR PRN 3 Days #18 tab 08/31/20 10-325] Doxycycline [Vibramycin] 100 mg PO BID 5 Days #10 capsule 04/22/22 methylPREDNISolone [Medrol Dose 0 mg PO DIRECTED #1 packet 04/22/22 Pack] Allergies Allergy/AdvReac Type Severity Reaction Status Date / Time oxycodone HCl Allergy Unknown Verified 04/22/22 11:15 [From Roxicodone] Review of Systems ROS Statement: Those systems with pertinent positive or pertinent negative responses have been documented in the HPI. ROS Other: All systems not noted in ROS Statement are negative. Past Medical History Past Medical History: Coronary Artery Disease (CAD), COPD, Hyperlipidemia, Myocardial Infarction ([place]), Osteoarthritis (OA), Pneumonia Additional Past Medical History / Comment(s): current abdominal pain, hx diverticuli, Carotid stenosis, DDD Last Myocardial Infarction Date:: 2014 History of Any Multi-Drug Resistant Organisms: None Reported Past Surgical History: Back Surgery, Heart Catheterization With Stent, Hernia Repair, Orthopedic Surgery Additional Past Surgical History / Comment(s): back sx X4, pain procedures, cataract surg. rt carpal tunnel, sx berna knees Past Anesthesia/Blood Transfusion Reactions: No Reported Reaction Date of Last Stent Placement:: 2014 Past Psychological History: No Psychological Hx Reported Smoking Status: Current every day smoker Past Alcohol Use History: None Reported Past Drug Use History: None Reported - Past Family History Mother Family Medical History: Cancer Additional Family Medical History / Comment(s): knees replaced, breast CA Father Family Medical History: Cancer Additional Family Medical History / Comment(s): pulmonary fibrosis General Exam Limitations: no limitations General appearance: alert Head exam: Present: atraumatic Eye exam: Absent: scleral icterus, conjunctival injection, periorbital swelling ENT exam: Present: mucous membranes moist Expanded Mouth exam: Present: tongue normal, tongue elevation. Absent: drooling, trismus, muffled voice Throat exam: normal inspection. negative: tonsillar erythema, tonsillar exudate Neck exam: Absent: tenderness, meningismus Respiratory exam: Present: decreased breath sounds. Absent: respiratory distress, wheezes, rales, rhonchi, stridor, accessory muscle use Cardiovascular Exam: Present: regular rate GI/Abdominal exam: Present: soft. Absent: distended, rigid Back exam: Absent: tenderness, CVA tenderness (R), CVA tenderness (L), rash noted Neurological exam: Present: alert, oriented X3 Psychiatric exam: Present: normal affect, normal mood Skin exam: Present: warm, dry, normal color. Absent: cyanosis, diaphoretic, petechiae, pallor Course Vital Signs 04/22/22 04/22/22 04/22/22 11:13 12:09 12:22 Temperature 98.3 F Pulse Rate 82 91 87 Respiratory 18 18 Rate Blood Pressure 105/68 139/91 O2 Sat by Pulse 93 L 94 L Oximetry 04/22/22 04/22/22 04/22/22 12:29 12:53 13:52 Temperature Pulse Rate 88 83 80 Respiratory 20 18 Rate Blood Pressure 127/79 148/78 O2 Sat by Pulse 94 L 96 Oximetry Medical Decision Making - Medical Decision Making EKG interpreted by me shows sinus rhythm with no ST elevation or T-wave inversions. Troponin negative 0.012. No evidence of leukocytosis, hemoglobin and hematocrit are stable. Creatinine 1.4, patient does have history of elevated creatinines 1.45 and November 2018 and 1.2 in August 2020 Chest x-ray interpreted by me shows no signs of consolidation or masses. Card iac size and normal limits. Radiologist interpretation chronic emphysematous changes without acute pulmonary process. Patient was given steroids and DuoNeb treatment. Patient's lungs sounds improv ed oxygen saturation 96% on room air. States he is feeling better. Prescription for a spacer was prescribed as he states he has a hard time inhaling medication with just an inhaler. He was also prescribed doxycycline and Medrol Dosepak for COPD exacerbation. States he is currently taking steroids for his chronic back pain. He was advised to stop that taper dose and start the Medrol Dosepak. Directed to follow-up with his primary care doctor this week. Return to emergency room for any new or concerning symptoms. Patient is agreeable to this plan of care. Case discussed with Dr. Cartagena - Lab Data Result diagrams: 04/22/22 12:32 04/22/22 12:32 Lab Results 04/22/22 04/22/22 04/22/22 Range/Units 12:32 12:32 12:32 WBC 8.0 (3.8-10.6) k/uL RBC 4.28 L (4.30-5.90) m/uL Hgb 13.8 (13.0-17.5) gm/dL Hct 38.9 L (39.0-53.0) % MCV 90.9 (80.0-100.0) fL MCH 32.3 (25.0-35.0) pg MCHC 35.5 (31.0-37.0) g/dL RDW 12.7 (11.5-15.5) % Plt Count 133 L (150-450) k/uL MPV 7.5 Neutrophils % 83 % Lymphocytes % 11 % Monocytes % 5 % Eosinophils % 1 % Basophils % 0 % Neutrophils # 6.7 (1.3-7.7) k/uL Lymphocytes # 0.8 L (1.0-4.8) k/uL Monocytes # 0.4 (0-1.0) k/uL Eosinophils # 0.0 (0-0.7) k/uL Basophils # 0.0 (0-0.2) k/uL PT 10.6 (9.0-12.0) sec INR 1.0 (<1.2) APTT 26.1 (22.0-30.0) sec Sodium 136 L (137-145) mmol/L Potassium 4.4 (3.5-5.1) mmol/L Chloride 106 (98-107) mmol/L Carbon Dioxide 20 L (22-30) mmol/L Anion Gap 10 mmol/L BUN 37 H (9-20) mg/dL Creatinine 1.40 H (0.66-1.25) mg/dL Est GFR (CKD-EPI)AfAm 60 (>60 ml/min/1.73 sqM) Est GFR (CKD-EPI)NonAf 52 (>60 ml/min/1.73 sqM) Glucose 101 H (74-99) mg/dL Calcium 8.3 L (8.4-10.2) mg/dL Magnesium 2.0 (1.6-2.3) mg/dL Total Bilirubin 0.6 (0.2-1.3) mg/dL AST 20 (17-59) U/L ALT 23 (4-49) U/L Alkaline Phosphatase 102 (38-126) U/L Troponin I (0.000-0.034) ng/mL Total Protein 6.6 (6.3-8.2) g/dL Albumin 4.2 (3.5-5.0) g/dL 04/22/22 Range/Units 12:32 WBC (3.8-10.6) k/uL RBC (4.30-5.90) m/uL Hgb (13.0-17.5) gm/dL Hct (39.0-53.0) % MCV (80.0-100.0) fL MCH (25.0-35.0) pg MCHC (31.0-37.0) g/dL RDW (11.5-15.5) % Plt Count (150-450) k/uL MPV Neutrophils % % Lymphocytes % % Monocytes % % Eosinophils % % Basophils % % Neutrophils # (1.3-7.7) k/uL Lymphocytes # (1.0-4.8) k/uL Monocytes # (0-1.0) k/uL Eosinophils # (0-0.7) k/uL Basophils # (0-0.2) k/uL PT (9.0-12.0) sec INR (<1.2) APTT (22.0-30.0) sec Sodium (137-145) mmol/L Potassium (3.5-5.1) mmol/L Chloride (98-107) mmol/L Carbon Dioxide (22-30) mmol/L Anion Gap mmol/L BUN (9-20) mg/dL Creatinine (0.66-1.25) mg/dL Est GFR (CKD-EPI)AfAm (>60 ml/min/1.73 sqM) Est GFR (CKD-EPI)NonAf (>60 ml/min/1.73 sqM) Glucose (74-99) mg/dL Calcium (8.4-10.2) mg/dL Magnesium (1.6-2.3) mg/dL Total Bilirubin (0.2-1.3) mg/dL AST (17-59) U/L ALT (4-49) U/L Alkaline Phosphatase (38-126) U/L Troponin I <0.012 (0.000-0.034) ng/mL Total Protein (6.3-8.2) g/dL Albumin (3.5-5.0) g/dL - EKG Data EKG shows normal: sinus rhythm (Ventricular rate 78, UT interval 0.155, QRS 0.86, QTC 0.384 normal axis) Disposition Clinical Impression: COPD exacerbation Disposition: HOME SELF-CARE Condition: Good Instructions (If sedation given, give patient instructions): How to Stop Sm oking (ED), COPD (Chronic Obstructive Pulmonary Disease) (ED) Additional Instructions: Take antibiotics and Medrol Dosepak as prescribed. Stop other steroids for your back pain as prescribed by your doctor. Return to the emergency room with any new or concerning symptoms including chest pain or difficulty in breathing. Prescriptions: methylPREDNISolone [Medrol Dose Pack] 0 mg PO DIRECTED #1 packet Doxycycline [Vibramycin] 100 mg PO BID 5 Days #10 capsule Is patient prescribed a controlled substance at d/c from ED?: No Referrals: Oseas Hancock DO [Primary Care Provider] - 1-2 days Time of Disposition: 13:26
[2022-04-22 12:42] LABS: Basophils % (A) 0 %; Eosinophils % (A) 1 %; HCT 38.9 % (39.0-53.0); HGB 13.8 gm/dL (13.0-17.5); Lymphocytes # (A) 0.8 k/uL (1.0-4.8); Lymphocytes % (A) 11 %; MCH 32.3 pg (25.0-35.0); MCHC 35.5 g/dL (31.0-37.0); MCV 90.9 fL (80.0-100.0); Mean Platelet Volume 7.5; Monocytes # (A) 0.4 k/uL (0-1.0); Monocytes % (A) 5 %; Neutrophils # (A) 6.7 k/uL (1.3-7.7); Neutrophils % (A) 83 %; Platelet Count 133 k/uL (150-450); RBC 4.28 m/uL (4.30-5.90); RDW 12.7 % (11.5-15.5)
[2022-04-22 12:52] LABS: Partial Thromboplastin Time 26.1 sec (22.0-30.0); Prothrombin Time 10.6 sec (9.0-12.0)
[2022-04-22 12:56] LABS: Albumin 4.2 g/dL (3.5-5.0); Calcium 8.3 mg/dL (8.4-10.2); Potassium 4.4 mmol/L (3.5-5.1); Total Bilirubin 0.6 mg/dL (0.2-1.3); Total Protein 6.6 g/dL (6.3-8.2)
--- NOTE | 2022-04-22 13:16 | XR ---
EXAMINATION TYPE: XR chest 2V DATE OF EXAM: 04/22/2022 COMPARISON: Chest x-ray 2014. Low dose lung screening CT January 15, 2022 HISTORY: Difficulty in breathing. TECHNIQUE: Frontal and lateral views of the chest are obtained. FINDINGS: Background chronic emphysematous changes redemonstrated. There is no suspicious new focal a ir space opacity, pleural effusion, or pneumothorax seen. The cardiac silhouette size is stable and within normal limits. Thoracic spinal stimulator device redemonstrated. IMPRESSION: Chronic emphysematous change without acute pulmonary process.
[2022-04-22 13:54] VITALS: BP 148/78; PULSE 80; RESP 18
== END 2022-04-22 13:56 | disposition home or self-care (01) ==
LOC: EC 11:06
DX: J44.1 Chronic obstructive pulmonary disease with (acute) exacerbation (principal); I25.10 Atherosclerotic heart disease of native coronary artery without angina pectoris; I25.2 Old myocardial infarction; E78.5 Hyperlipidemia, unspecified; M19.90 Unspecified osteoarthritis, unspecified site; F17.200 Nicotine dependence, unspecified, uncomplicated; Z79.891 Long term (current) use of opiate analgesic; Z79.02 Long term (current) use of antithrombotics/antiplatelets; Z79.82 Long term (current) use of aspirin; Z88.5 Allergy status to narcotic agent; Z79.899 Other long term (current) drug therapy; Z79.51 Long term (current) use of inhaled steroids
CPT/HCPCS: 99285; 96374; 36415; 94640; 93005; 80053; 83735; 84484; 85025; 85610; 85730; 71046; J2930

== ENCOUNTER 2022-08-16 12:00 | Day surgery (SDC) | payer BC, OTHER ==
[~2022-08-16 12:00] MED LIST changes: +ATROPINE SULFATE 0.4 MG/ML 1 ML VIAL IM ONE; +HYDROmorphone 0.5 MG/0.5 ML SYRINGE IVP PRN; +LIDOCAINE 1% (10MG/ML) FOR IV START INTRADERMA PRN; +MIDAZOLAM 2 MG/2 ML VIAL IV PRN; -fentaNYL (PF) 50 MCG/ML 2 ML AMP IV PRN
[2022-08-16 12:35] VITALS: TEMP 97.2
[2022-08-16] MEDS ORDERED: KETAMINE 10 MG/ML 20 ML VIAL ONE (13:13)
[2022-08-16] MEDS ORDERED: MIDAZOLAM 2 MG/2 ML VIAL ONE (13:13)
[2022-08-16] MEDS ORDERED: PROPOFOL 10 MG/ML 20 ML VIAL IV ONE (13:13)
[2022-08-16] MEDS ORDERED: LIDOCAINE 2% INJ 20 MG/ML (2 ML VIAL) ONE (13:13)
[2022-08-16] MEDS ORDERED: LIDOCAINE 2% INJ 20 MG/ML INTRATRACH ONE ×2 (13:19→13:21)
[2022-08-16 13:48] VITALS: BP 163/75; PULSE 86; RESP 16
--- NOTE | 2022-08-16 20:49 | PCN ---
PROCEDURE NOTE Pulmonary/Critical Care Procedure Note PROCEDURE PERFORMED: A bronchoscopy airway examination, therapeutic lavage, BAL. PREOPERATIVE DIAGNOSES: Chronic cough, chronic bronchitis, chronic sputum production. POSTOPERATIVE DIAGNOSIS: Chronic cough, chronic bronchitis, chronic sputum production. HOME LENDING OFFICER: Dr. Rene. There was informed consent and universal timeout, the patient's procedure took place in [facility], room #1. ANESTHESIA PROVIDED: General anesthesia. After the patient was adequately sedated and being fully monitored, the bronchoscope was inserted through the right nostril. It passed through the right nasopharynx and into the oropharynx. Next, we passed the bronchoscope into the hypopharynx. The hypopharyngeal structures appeared relatively normal, although somewhat crowded. Anterior commissure, true cords, false cords, arytenoids, right and left, vallecula, epiglottis, piriform sinuses right and left, all appeared normal. After topicalization of the glottis, the bronchoscope was pushed through the glottic opening into the trachea. Trachea appeared normal. There were no lesions or abnormalities. The tracheal lady was sharp. The right and left mainstem were topicalized. The right upper lobe and its 3 segments, right middle lobe and its 2 segments, the right lower lobe and its 5 segments, the left upper lobe proper, and its 2 segments, the lingula and its 2 segments in the left lower lobe and its 4 segments all had similar findings of diffuse very mild airway erythema. The degree of abnormality was relatively mild. There was some thin secretions noted throughout. They were suctioned easily. There was no dominant mass or tumor. There was not much in the way of mucosal friability. The bronchoscope was then wedged into the right middle lobe. We did a formal BAL. A 30 mL of fluid was recovered. It will be sent to the laboratory for analysis. The patient tolerated the procedure well without complication. The bronchoscope was withdrawn. The patient will be recovered. I did speak to the patient's after the procedure. He does have follow up with me in the office. MMODL / IJN: [id number] /
[2022-08-19 12:58] LABS: Appearance,BF Hazy
== END 2022-08-16 14:03 | disposition home or self-care (01) ==
LOC: ORWHC2ENDO 12:00
PROVIDERS: ATTEND Internal Medicine Critical Care Medicine
DX: J42 Unspecified chronic bronchitis (principal); I25.2 Old myocardial infarction; I25.10 Atherosclerotic heart disease of native coronary artery without angina pectoris; F17.210 Nicotine dependence, cigarettes, uncomplicated; N18.30 Chronic kidney disease, stage 3 unspecified; M48.02 Spinal stenosis, cervical region; Z79.899 Other long term (current) drug therapy; Z98.890 Other specified postprocedural states
CPT/HCPCS: 87798 ×3; 87496; 87498; 87529; 89050; 87252; 87502; 87634; 87070; 87205; 87116; 87102; 87077; 87186; 87206; 31624; J2001 ×2; J2250; J0461; J2704

== ENCOUNTER → 2022-08-19 | Outpatient (CLI) | payer OTHER ==
--- NOTE | 2022-08-19 14:20 | CT ---
EXAMINATION TYPE: CT chest wo con DATE OF EXAM: 08/19/2022 COMPARISON: Prior low-dose lung screening CT January 15, 2022 HISTORY: Interstitial pulmonary disease CT DLP: 275 mGycm. Automated Exposure Control for Dose Reduction was Utilized. TECHNIQUE: CT scan of the thorax is performed without IV contrast. High-resolution protocol with 1 m m sequences obtained at 10 mm intervals in supine and prone technique utilizing full inspiration and expiration. FINDINGS: LUNGS: Mild to moderate underlying emphysematous changes are redemonstrated. Focal mild to moderate l inear scarring and/or atelectasis in the right middle lobe is new from most recent CT was slightly th ickened areas. There is mild to moderate peripheral reticulation and/or fibrotic change in the right lower lobe near the diaphragm is slightly progressed from most recent CT. Mild biapical pleural/corti nick scarring is again seen. Left lung remains clear. No pleural effusion or pneumothorax seen. No new pulmonary masses. No honeycombing. No significant bronchiectasis. MEDIASTINUM: Lack of IV contrast and technique are noted to limit evaluation for mediastinal and ivana ecially hilar adenopathy. There are no definitive greater new greater than 1 cm mediastinal lymph nod es. No cardiomegaly or pericardial effusion is seen. Coronary artery calcification and/or stents ar e redemonstrated OTHER: Posterior Thoracic spinal stimulator device is again seen. IMPRESSION: Mild to moderate parenchymal fibrotic changes in the right lower lung show interval progr ession from most recent prior CT. Left lung remains clear. Background of mild to moderate underlying emphysematous change is redemonstrated.
== END | disposition home or self-care (01) ==
LOC: RADCTMAIN 12:33
PROVIDERS: ATTEND Internal Medicine Critical Care Medicine
DX: J43.9 Emphysema, unspecified (principal); J84.9 Interstitial pulmonary disease, unspecified
CPT/HCPCS: 71250

== ENCOUNTER → 2022-11-27 | Day surgery (SDC) | payer OTHER ==
[2022-11-21 11:19] VITALS: BMI 25.7
[~2022-11-27] MED LIST changes: -DEXAMETHASONE SOD PHOSPHATE 4 MG/ML 1 ML VIAL IV ONE; -HYDROmorphone 0.5 MG/0.5 ML SYRINGE IVP PRN; +LIDOCAINE 2% INJ 20 MG/ML (2 ML VIAL) ONE; -MIDAZOLAM 2 MG/2 ML VIAL IV PRN; +MIDAZOLAM 2 MG/2 ML VIAL ONE; -ONDANSETRON 4 MG/2 ML VIAL IVP ONE; +PROPOFOL 10 MG/ML 20 ML VIAL IV ONE; +SUCCINYLCHOLINE CHLORIDE 200 MG/10 ML VIAL IV ONE; +fentaNYL (PF) 50 MCG/ML 2 ML AMP ONE
[2022-11-27 12:25] VITALS: RESP 16
[2022-11-27 13:35] VITALS: TEMP 97.2
--- NOTE | 2022-11-27 13:53 | XR ---
EXAMINATION TYPE: XR chest 1V portable DATE OF EXAM: 11/27/2022 COMPARISON: 04/22/2022 HISTORY: POST BRONCH WITH RLL BX TECHNIQUE: Single frontal view of the chest is obtained. FINDINGS: Hyperinflation compatible COPD there is right lower lobe infiltrate. No pleural effusion o r pneumothorax. No interstitial edema. Stimulator device overlying the thoracic spine with hypertroph ic and degenerative changes. IMPRESSION: 1. COPD with right lower lobe infiltrate.
--- NOTE | 2022-11-27 13:54 | FL ---
EXAMINATION TYPE: FL bronchoscopy DATE OF EXAM: 11/27/2022 COMPARISON: NONE HISTORY: Fluoroscopy TECHNIQUE: Fluoroscopy. FINDINGS: fl time 16.5 secs dap [id number] IMPRESSION: As Above.
--- NOTE | 2022-11-27 14:09 | PCN ---
PROCEDURE NOTE PULMONARY/CRITICAL CARE PROCEDURE NOTE: PROCEDURES PERFORMED: Bronchoscopy, airway examination, therapeutic lavage, bronchoalveolar lavage, right lower lobe; brushes, right lower lobe; and endobronchial and transbronchial biopsies, right lower lobe. PREOPERATIVE DIAGNOSES: Chronic obstructive pulmonary disease, shortness of breath, mucus excess, and interstitial lung disease. POSTOPERATIVE DIAGNOSES: Chronic obstructive pulmonary disease, shortness of breath, mucus excess, and interstitial lung disease. SERVICE CENTER TECHNICIAN: In the surgical procedure was Dr. Rene. There was informed consent and universal timeout. Dr. Mullins provided general anesthesia. The patient's procedure was done in room 1, [facility]. DESCRIPTION OF PROCEDURE: After the patient was under the effects of general anesthesia, and on the ventilator, the bronchoscope was inserted through the bronchoscope adapter connected to the endotracheal tube. We did a thorough evaluation of both lungs, including the right upper lobe and its 3 segments; right middle lobe and its 2 segments; the left upper lobe proper and its 2 segments, lingula and its 2 segments, the left lower lobe and its 4 segments. There were thick secretions noted throughout. They were suctioned. There was no dominant mass or tumor. The secretions were suctioned with the aid of saline. Afterwards, under direct visualization with the fluoroscopic machine we did brushes to the right lower lobe. Next, with fluoroscopic guidance, we did transbronchial biopsies and endobronchial biopsies to the right lower lobe. Most of the biopsies were transbronchial biopsies and may be one endobronchial biopsy. There was no significant bleeding. Next, the bronchoscope was wedged into the right lower lobe, and we did a formal BAL. There was about 30 mL of fluid being recovered. The patient tolerated the procedure well. Under fluoroscopic guidance, we checked for pneumothorax in the right lung, there was none. There was no significant bleeding. The bronchoscope was withdrawn. A chest x-ray was ordered. The patient will be recovered. MMODL / IJN: [id number] / MTDD
[2022-11-27 14:24] VITALS: BP 139/67; PULSE 77
[2022-11-28 06:19] LABS: Appearance,BF Bloody (Clear); RBC, Body Fluid 22975 (0-2000)
[2022-11-28 08:38] LABS: Nucleated Cells, Body Fluid 5 X 10*3/uL
== END | disposition home or self-care (01) ==
LOC: ORWHC2ENDO 11:36
PROVIDERS: ATTEND Internal Medicine Critical Care Medicine
DX: J44.9 Chronic obstructive pulmonary disease, unspecified (principal); I25.10 Atherosclerotic heart disease of native coronary artery without angina pectoris; Z79.82 Long term (current) use of aspirin; Z79.51 Long term (current) use of inhaled steroids; Z79.899 Other long term (current) drug therapy
CPT/HCPCS: 89050; 87252; 87070; 87205; 87116; 87102; 87206; 71045; 31628; 31623; 31624; J2250; J0330; J0461; J3010; J2704; J2001

== ENCOUNTER → 2022-12-11 | Outpatient (CLI) | payer OTHER ==
[2022-12-11 20:24] LABS: Immunoglobulin E 9.57 IU/mL (0.00-114.00)
[2022-12-11 20:37] LABS: Immunoglobulin M 89.9 mg/dL (40.0-280.0)
== END | disposition home or self-care (01) ==
LOC: LABWHC1 15:18
PROVIDERS: ATTEND Internal Medicine Critical Care Medicine
DX: D80.1 Nonfamilial hypogammaglobulinemia (principal)
CPT/HCPCS: 36415; 82784; 82785

== ENCOUNTER → 2023-08-21 | Outpatient (CLI) | payer OTHER ==
--- NOTE | 2023-08-26 19:00 | CTL ---
EXAMINATION TYPE: CT Low Dose Lung DATE OF EXAM: 08/21/2023 6:29 AM CLINICAL INDICATION:Male, 68 years old with history of Z87.891 HX TOBACCO USE; personal history of ni cotine dependence , history of tobacco use. COMPARISON: None. TECHNIQUE: Multiple axial non-contrast scans were obtained from approximately the lung apices through the upper abdomen. Coronal and sagittal reformatted images were obtained. Low dose technique was uti lized. CT DLP: 122.2 mGycm, Automated exposure control for dose reduction was used. CT Contrast: Contrast used: None Oral contrast used: None FINDINGS: ======== Lack of intravenous contrast and low dose technique limits the evaluation of the vascular and soft ti ssue structures. LUNGS: Foci of right middle lobe and right lower lobe fibrosis. Foci of peripheral mild groundglass a irspace disease. No consolidating airspace disease. No pleural effusion. Nodules: RUL: None. RML: None. RLL: None. LESIA: None. LLL: None. AIRWAY: Patent and unremarkable. HEART: Size within normal limits. Mild to moderate calcific coronary artery disease MEDIASTINUM: No gross evidence of adenopathy. A few small paratracheal lymph nodes. VASCULATURE: No aortic aneurysm. MUSCULOSKELETAL: No acute osseous abnormalities SOFT TISSUES/LYMPH NODES: Unremarkable. LOWER NECK: No significant findings. UPPER ABDOMEN: No significant findings. IMPRESSION: 1. No clinically significant pulmonary nodules. CT LUNG RAD AND CT CHEST RECOMMENDATION: Lung-Rad 1 Negative: Continue annual screening with LDCT in 12 months. S Modifier (other clinically significant findings): CAD Recommend smoking cessation (if current smoker), or continuation of smoking cessation (if prior smoke r). Annual screening for lung cancer with low-dose computed tomography is recommended in adults ages 55 to 77 years who have a 30 pack-year smoking history and currently smoke or have quit within the pa st 15 years. Screening should be discontinued once a person has not smoked for 15 years or develops a health problem that substantially limits life expectancy or the ability or willingness to have curat caitie lung surgery. Lung rads 2021 [email or web address]
== END | disposition home or self-care (01) ==
LOC: RADCTMAIN 05:59
PROVIDERS: ATTEND Family Medicine
DX: Z12.2 Encounter for screening for malignant neoplasm of respiratory organs (principal); I25.10 Atherosclerotic heart disease of native coronary artery without angina pectoris; Z87.891 Personal history of nicotine dependence
CPT/HCPCS: 71271

== ENCOUNTER → 2023-09-23 | Outpatient (CLI) | payer OTHER ==
--- NOTE | 2023-09-23 12:44 | CT ---
EXAMINATION TYPE: CT lumbar spine wo con CT DLP: 920.4 mGycm, Automated exposure control for dose reduction was used. DATE OF EXAM: 09/23/2023 12:33 PM COMPARISON: 06/30/2020. CLINICAL INDICATION:Male, 68 years old with history of M54.50 LOW BACK PAIN, UNSPECIFIED, chronic low back pain TECHNIQUE: Multiple axial images were obtained from the midportion of T11 through the sacroiliac woodrow nts. Soft tissue and bone windows in coronal and sagittal planes were obtained and reviewed. Contrast used: mL of , (None, if empty). Oral contrast used: (None, if empty). FINDINGS: Alignment: There are 5 lumbar type vertebral bodies within straightening postsurgical alignment. Bone: Multilevel degeneration changes throughout the spine with osteophyte formation disc space narro wing and facet arthropathy. There is fixation of L5-S1 on the left with hardware intact. Osseous fusi on of the posterior elements with laminectomy changes at L4. Disc space L3-L4 and L4-L5 and L5-S1. Se adalgisa atherosclerosis of the spinous processes. Removal of hardware in the right at L5-S1. No evidence of fracture. Discs: T12-L1: No spinal canal or neural foraminal stenosis is identified. L1-L2: Facet joint arthropathy and disc bulging result with mild spinal canal stenosis and mild bilat eral neural foraminal stenosis. L2-L3: Facet joint arthropathy and disc bulging result with moderate spinal canal stenosis and modera te bilateral neural foraminal stenosis. L3-L4: Facet joint arthropathy and disc bulging result with mild spinal canal stenosis and mild bilat eral neural foraminal stenosis. L4-L5: Fixation changes limits evaluation the neural foramen are mild to moderately narrowed. No spin al canal or neural foraminal stenosis is identified. L5-S1: Fixation changes limits evaluation the neural foramen are patent. The spinal canal is grossly patent. No spinal canal or neural foraminal stenosis is identified. Other: Nerve stimulator leads enter the spine at T11-T12. IMPRESSION: 1. Post surgical changes with hardware intact. Removal of right-sided hardware L5-S1 with hardware o n the left intact. 2. 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 3. Degeneration changes throughout the spine worse at L2-L3 with moderate spinal canal and moderate bilateral neural foraminal stenosis due to severe facet joint arthropathy.
== END | disposition home or self-care (01) ==
LOC: RADCTMAIN 11:56
PROVIDERS: ATTEND Family Medicine
DX: M47.816 Spondylosis without myelopathy or radiculopathy, lumbar region (principal); M48.061 Spinal stenosis, lumbar region without neurogenic claudication; M99.73 Connective tissue and disc stenosis of intervertebral foramina of lumbar region
CPT/HCPCS: 72131

== ENCOUNTER → 2023-12-17 | Day surgery (SDC) | payer OTHER ==
--- NOTE | 2023-12-16 13:48 | P.HPOR ---
History of Present Illness H&P Date: 12/16/23 Subjective: This is a 68 year old male that presents today for initial evaluation regarding a several year history of progressively worsening right hand paresthesias in the thumb, index, middle and ring fingers. The patient has tried bracing and injections within the last year. He had a left carpal tunnel release performed over 10 years ago and was told at that time he also needed his right side done but he never had it performed. He has constant numbness any burning that wakes him from sleep at night. Physical Examination: RUE: AIN/PIN/Radial/Ulnar/Median motor intact. Radial/Ulnar/Median SILT. 2+/4 Radial/Ulnar pulses palpated. 4/5 APB, 5/5 FDI. Negative Finkelsteins, negative CMC grind, positive Durkan's compression. EMG/NCV: EMG/NCV performed on 10/01/23 demonstrates severe right carpal tunnel syndrome, moderate right cubital tunnel syndrome Imaging: X-rays of the right hand 3V taken in office today demonstrate no fracture or dislocation. Impression: 1.) Right carpal tunnel syndrome 2.) Right cubital tunnel syndrome Plan: Diagnosis and treatment options were discussed with the patient. The patient has failed conservative treatment for his carpal tunnel syndrome and I recommend a right endoscopic vs open carpal tunnel release, he is asymptomatic in regards to his cubital tunnel syndrome and does not wish to pursue any treatment for it. He states he has back issues that may require surgery with Dr. Rebollar. He will discuss his treatment plan at his upcoming visit with spine surgery and will contact the office regarding his decision when to pursue a carpal tunnel release. -Hunter Edwards DO Orthopedic Hand/Upper Extremity Surgeon Past Medical History Past Medical History: Coronary Artery Disease (CAD), COPD, Myocardial Infarction ([place]), Osteoarthritis (OA), Pneumonia, Renal Disease Additional Past Medical History / Comment(s): abdominal pain, carotid stenosis, DDD , stage 3 kidney disease, tinnitus, short term memory lapses since Covid, had 3 different lung infections w/ Covid Last Myocardial Infarction Date:: 2014 History of Any Multi-Drug Resistant Organisms: None Reported Past Surgical History: Back Surgery, Heart Catheterization With Stent, Hernia R epair, Orthopedic Surgery Additional Past Surgical History / Comment(s): back sx X4, pain procedures, cataract surg. Lt carpal tunnel, arthroscopy x 4 berna knees, eye surg x 4 for "lazy muscles", spinal stimulator - not used in years Past Anesthesia/Blood Transfusion Reactions: No Reported Reaction Date of Last Stent Placement:: 2014 Smoking Status: Former smoker - Past Family History Brother(s) Family Medical History: Cancer Additional Family Medical History / Comment(s): currently has lung/brain cancer Mother Family Medical History: Cancer, Osteoarthritis (OA) Additional Family Medical History / Comment(s): breast CA Father Family Medical History: Cancer Additional Family Medical History / Comment(s): lung cancer Medications and Allergies Home Medications Medication Instructions Recorded Confirmed Type tiZANidine [Zanaflex] 4 mg PO QAM 03/27/15 12/15/23 History Nitroglycerin Sl Tabs [Nitrostat] 0.4 mg SUBLINGUAL Q5M PRN #25 tab 03/30/15 12/15/23 Rx Atorvastatin [Lipitor] 80 mg PO HS 04/04/16 12/15/23 History traZODone HCL 150 mg PO HS 08/29/17 12/15/23 History Aspirin [Adult Low Dose Aspirin EC] 162 mg PO HS 08/03/20 12/15/23 History Gabapentin [Neurontin] 600 mg PO TID 08/03/20 12/15/23 History Albuterol Sulfate [Proventil Hfa] 1 puff INHALATION Q4-6H PRN 08/25/20 12/15/23 History Tamsulosin HCl [Flomax] 2 tab PO QAM 08/31/20 12/15/23 History Fluticasone Propion/Salmeterol 1 inhalation PO BID 08/13/22 12/15/23 History [Wixela 100-50 Inhub] HYDROcodone/APAP 7.5-325MG [[place] 2 tab PO TID 08/13/22 12/15/23 History 7.5-325] Albuterol Nebulized [Ventolin 2.5 mg INHALATION QID PRN 11/21/22 12/15/23 Hist ory Nebulized] Montelukast [Singulair] 10 mg PO HS 11/21/22 12/15/23 History tiZANidine [Zanaflex] 8 mg PO HS 12/15/23 12/15/23 History Allergies Allergy/AdvReac Type Severity Reaction Status Date / Time oxycodone HCl Allergy Unknown Verified 12/15/23 12:39 [From Roxicodone] Physical Examination Osteopathic Statement: *. No significant issues noted on an osteopathic structural exam other than those noted in the History and Physical/Consult.
[~2023-12-17] MED LIST changes: -ATROPINE SULFATE 0.4 MG/ML 1 ML VIAL IM ONE; +HYDROmorphone 0.5 MG/0.5 ML SYRINGE IVP PRN; -LACTATED RINGERS 1,000 ML IV SCH; -LIDOCAINE 2% INJ 20 MG/ML (2 ML VIAL) ONE; +MIDAZOLAM 2 MG/2 ML VIAL IV PRN; +Pre Op ABX Message 1 EACH MISC MISCELLANE ONE; -SUCCINYLCHOLINE CHLORIDE 200 MG/10 ML VIAL IV ONE
[2023-12-17] MEDS: IV FLUID CONTINUATION 1,000 ML IV ONE (11:37)
[2023-12-17 11:46] VITALS: TEMP 96.9
[2023-12-17] MEDS: LACTATED RINGERS 1,000 ML IV SCH (12:00)
[2023-12-17] MEDS: BUPIVACAINE (PF) 0.5% 30 ML VIAL SQ ONE (12:26)
[2023-12-17] MEDS: LIDOCAINE 1% INJ 10MG/ML (20 ML MDV) SQ ONE (12:26)
--- NOTE | 2023-12-17 12:38 | P.OP ---
Date of Procedure: 12/17/23 Preoperative Diagnosis: Right carpal tunnel syndrome Postoperative Diagnosis: Right carpal tunnel syndrome Procedure(s) Performed: Right endoscopic carpal tunnel release Anesthesia: MAC Surgeon: Hunter Edwards Estimated Blood Loss (ml): 0 Pathology: none sent Condition: stable Disposition: PACU Description of Procedure: This is a 68 year old female who presents today for a right endoscopic carpal tunnel release after having failed conservative treatment in the past. Risks and benefits of surgery were discussed with the patient including bleeding, damage to surrounding tissue, infection, need to convert to open procedure, need for further surgery as well as risks of anesthesia including pulmonary embolism and even and the patient wished to proceed with surgical intervention. The patients was seen in the pre-operative area by myself. Consent and H&P were completed and updated. The correct extremity was marked in the pre-operative area by myself and all other questions were answered. Operative Narrative: The patient was brought to the operating room by the department of anesthesia. They remained on the portable stretcher and a rolling hand table was brought to the side of the operative extremity. Pre-operative time out was performed indicating the correct patient, procedure and laterality. All in the room agreed. The patient was then drifted off to sleep by the department of anesthesia. MAC anesthesia was utilized and a 50:50 mixture of 1% Lidocaine and 0.5% bupivacaine was injected into the subcutaneous tissues of the palmar skin, 8ccs total. A nonsterile tourniquet was then applied to the operative extremity and the upper extremity was then prepped and draped in normal sterile fashion. The operative extremity was the exsanguinated with an esmarch bandage and the tourniquet was inflated to 250mmHg. 15 blade scalpel was utilized to make a transverse incision on the palmar skin just ulnar to the palmaris longus tendon at the level of the distal wrist crease. Ragnell retractor was then placed radially and blunt dissection was performed to reveal the distal forearm fascia. This was lifted with fine [place]io pick ups and Littler tenotomy scissors were then used to open the forearm fascia transversely and a double skin hook was then placed. Hamate finder was placed into the carpal tunnel and then sequential sized dilators were inserted followed by the synovial elevator to separate the flexor tenosynovium from the undersurface of the transverse carpal ligament and a washboard texture was felt. The MicroAire endoscopic carpal tunnel release system gun was the then inserted into the carpal tunnel hugging the deep portion of the transverse carpal ligament in line with the base of the ring finger. Transverse fibers of the ligament were directly visualized. Pressure was applied on the palm to reveal the distal extent of the transverse carpal ligament. The blade was then deployed and the distal half of the transverse carpal ligament was released. The scope was then brought distal again and remaining transverse fibers were incised with the blade. The proximal half of the transverse carpal ligament was then divided and again the scope was advanced distal and remaining transverse fibers were incised with the blade. The radial and ulnar leaflets were directly visualized and mobile consistent with complete release. Tenotomy scissors were then utilized to release the remaining distal forearm fascia under direct visualization taking care to preserve the palmar cutaneous branch of the median nerve. Skin closure was performed with interrupted 4-0 Monocryl suture followed by steri strips. Sterile dressing was applied consisting 4x4s, Webril, and an solis bandage. Tourniquet was let down and the hand immediately was well perfused. The patient was then woken by the department of anesthesia and transferred to PACU in stable condition. Hunter Edwards D.O. Orthopedic Hand/Upper Extremity Surgeon
[2023-12-17 12:44] VITALS: RESP 16
[2023-12-17 13:02] VITALS: BP 131/70; PULSE 60
== END | disposition home or self-care (01) ==
LOC: OR 11:01
PROVIDERS: ATTEND Orthopaedic Surgery Hand Surgery
DX: G56.01 Carpal tunnel syndrome, right upper limb (principal); G56.21 Lesion of ulnar nerve, right upper limb; I25.10 Atherosclerotic heart disease of native coronary artery without angina pectoris; J44.9 Chronic obstructive pulmonary disease, unspecified; N18.30 Chronic kidney disease, stage 3 unspecified; Z87.891 Personal history of nicotine dependence; Z95.5 Presence of coronary angioplasty implant and graft; Z88.5 Allergy status to narcotic agent; Z79.899 Other long term (current) drug therapy; Z79.51 Long term (current) use of inhaled steroids; Z79.82 Long term (current) use of aspirin; Z79.891 Long term (current) use of opiate analgesic
CPT/HCPCS: 29848; J2250; J2001; J3010; J2704; J0665

== ENCOUNTER 2024-01-13 07:30 | Inpatient (IN) | payer OTHER ==
[~2024-01-13 07:30] MED LIST changes: +ACETAMINOPHEN TAB 500 MG TAB ONE; +ALBUMIN HUMAN 5% (25gm) 500 ML VIAL IVPB ONE; +DEXAMETHASONE SOD PHOSPHATE 4 MG/ML 1 ML VIAL ONE; +GABAPENTIN 300 MG CAP ONE; +GLYCOPYRROLATE 0.2 MG/ML 2 ML VIAL ONE; +HYDROcodone/APAP 10-325MG 1 EACH TAB ONE; -HYDROmorphone 0.5 MG/0.5 ML SYRINGE IVP PRN; +KETAMINE HCL IN 0.9 % NACL 50 MG/5 ML SYRINGE ONE; -LIDOCAINE 1% (10MG/ML) FOR IV START INTRADERMA PRN; +LIDOCAINE 1% INJ 10MG/ML (20 ML MDV) ONE; -MIDAZOLAM 2 MG/2 ML VIAL IV PRN; +ONDANSETRON 4 MG/2 ML VIAL ONE; +PHENYLEPHRINE 10 MG/ML VIAL ONE; -Pre Op ABX Message 1 EACH MISC MISCELLANE ONE; +ROCURONIUM 10 MG/ML (5 ML VIAL) IV ONE; +SUCCINYLCHOLINE CHLORIDE 200 MG/10 ML VIAL IV ONE; +TRANEXAMIC 1,000 MG/100ML-NACL PREMIX BAG ONE; +ceFAZolin 1 GM/50 ML BAG (PMX) ONE; +ePHEDrine 50 MG/ML 1 ML VIAL ONE
[2024-01-13] MEDS ORDERED: ceFAZolin 10 GM VIAL IVPB ONE ×3 (08:25→12:17)
[2024-01-13] MEDS ORDERED: SODIUM CHLORIDE 0.9% 50 ML BAG ONE ×2 (08:25→12:17)
[2024-01-13] MEDS ORDERED: LACTATED RINGERS 1,000 ML BAG ONE ×3 (08:25→12:17)
[2024-01-13] MEDS ORDERED: GENTAMICIN 80 MG/2 ML (MDV) VIAL ONE (12:17)
[2024-01-13] MEDS ORDERED: VANCOMYCIN 1,000 MG VIAL ONE (12:17)
[2024-01-13] MEDS ORDERED: SODIUM CHLORIDE 0.9% 250 ML BAG ONE (12:17)
[2024-01-13] MEDS ORDERED: SODIUM CHLORIDE 0.9% IRRIG 3,000 ML BAG IRRIGATION ONE ×2 (12:17)
[2024-01-13] MEDS ORDERED: HYDROmorphone 0.5 MG/0.5 ML SYRINGE ONE (15:42)
[2024-01-13] MEDS ORDERED: HYDROmorphone 1 MG/ML 1 ML SYRINGE ONE ×2 (17:02)
[2024-01-13] MEDS ORDERED: KETOROLAC 15 MG/ML 1 ML VIAL ONE ×2 (21:40)
[2024-01-13] MEDS ORDERED: CYCLOBENZAPRINE 10 MG TAB ONE ×2 (21:41)
[2024-01-13] MEDS ORDERED: GABAPENTIN 300 MG CAP ONE ×2 (21:41)
[2024-01-13] MEDS ORDERED: HYDROcodone/APAP 10-325MG 1 EACH TAB ONE ×2 (21:41)
[2024-01-13] MEDS ORDERED: ceFAZolin 1,000 MG VIAL ONE (23:59)
[2024-01-13] MEDS ORDERED: 0.9% NACL WITH KCL 20 MEQ/L 1,000 ML BAG IV ONE (23:59)
[2024-01-13] MEDS ORDERED: SODIUM CHLORIDE 0.9% 50 ML BAG IV ONE (23:59)
[2024-01-14] MEDS ORDERED: amLODIPine 5 MG TAB ONE ×4 (02:42→08:46)
[2024-01-14] MEDS ORDERED: HYDROmorphone 1 MG/ML 1 ML SYRINGE ONE ×8 (02:43→16:56)
[2024-01-14] MEDS ORDERED: GABAPENTIN 300 MG CAP ONE ×6 (07:47→20:43)
[2024-01-14] MEDS ORDERED: HYDROcodone/APAP 10-325MG 1 EACH TAB ONE ×4 (13:05→20:37)
[2024-01-14] MEDS ORDERED: CYCLOBENZAPRINE 10 MG TAB ONE ×2 (13:17)
[2024-01-14] MEDS ORDERED: SODIUM CHLORIDE 0.9% 50 ML BAG IV ONE (23:59)
[2024-01-14] MEDS ORDERED: KETOROLAC 15 MG/ML 1 ML VIAL ONE (23:59)
[2024-01-14] MEDS ORDERED: ceFAZolin 1,000 MG VIAL ONE (23:59)
[2024-01-14] MEDS ORDERED: traZODone HCL 50 MG TAB ONE (23:59)
[2024-01-14] MEDS ORDERED: SODIUM CHLORIDE 0.9% 1,000 ML BAG ONE (23:59)
[2024-01-15] MEDS ORDERED: HYDROcodone/APAP 10-325MG 1 EACH TAB ONE ×10 (03:30→21:01)
[2024-01-15] MEDS ORDERED: diazePAM 5 MG TAB ONE ×4 (03:52→15:01)
[2024-01-15] MEDS ORDERED: HYDROmorphone 1 MG/ML 1 ML SYRINGE ONE ×6 (04:09→22:44)
[2024-01-15] MEDS ORDERED: ALBUTEROL NEBULIZED 2.5 MG/3 ML INHALATION ONE ×2 (05:42)
[2024-01-15] MEDS ORDERED: GABAPENTIN 300 MG CAP ONE ×6 (06:15→21:01)
[2024-01-15] MEDS ORDERED: amLODIPine 5 MG TAB ONE ×2 (08:58)
[2024-01-15] MEDS ORDERED: CYCLOBENZAPRINE 10 MG TAB ONE ×4 (12:38→21:01)
[2024-01-15] MEDS ORDERED: bisacodyL 10 MG SUPP RECTAL ONE ×2 (14:10)
[2024-01-15] MEDS ORDERED: LACTULOSE 20 GM/30 ML CUP ONE ×2 (18:18)
[2024-01-15] MEDS ORDERED: traZODone HCL 50 MG TAB ONE (23:59)
[2024-01-16] MEDS ORDERED: GABAPENTIN 300 MG CAP ONE ×4 (06:11→22:31)
[2024-01-16] MEDS ORDERED: CYCLOBENZAPRINE 10 MG TAB ONE ×4 (06:11→22:31)
[2024-01-16] MEDS ORDERED: HYDROcodone/APAP 10-325MG 1 EACH TAB ONE ×10 (06:11→22:35)
[2024-01-16] MEDS ORDERED: HYDROmorphone 1 MG/ML 1 ML SYRINGE ONE ×10 (06:48→22:36)
[2024-01-16] MEDS ORDERED: amLODIPine 5 MG TAB ONE ×2 (09:44)
[2024-01-16] MEDS ORDERED: MAGNESIUM HYDROXIDE 2,400 MG/30 ML CUP ONE ×2 (09:57)
[2024-01-16] MEDS ORDERED: SYMBICORT 80-4.5 MCG INHALER INHALATION ONE (23:59)
[2024-01-16] MEDS ORDERED: amLODIPine 2.5 MG TAB ONE (23:59)
[2024-01-17] MEDS ORDERED: GABAPENTIN 300 MG CAP ONE (06:57)
[2024-01-17] MEDS ORDERED: HYDROcodone/APAP 10-325MG 1 EACH TAB ONE ×4 (08:50→13:23)
--- NOTE | 2024-02-03 12:58 | CT ---
Jaswinder Grewal ID: [id number] : N/A EXAMINATION TYPE: CT thor lumbar spine wo con DATE OF EXAM: 01/14/2024 COMPARISON: None HISTORY: 68-year-old male postop [id number] fusion, postoperative evaluation TECHNIQUE: Contiguous axial scanning of the thoracic and lumbar spine without IV contrast. Coronal an d sagittal reconstructions performed. CT DLP: 2306.2 mGycm Automated exposure control for dose reduction was used. FINDINGS: There is extensive posterior fusion changes extending from T10 down into the pelvis with screws exten ding across the sacrum and SI joints. Lateral osseous fusion bone graft material is noted from T10 down to the L1 level. Laminectomy change is noted from the L1-L5 levels. There is mature lateral osseous fusion change demonstrated from L4 d own to S1. Interbody devices are present at L2-L3, L3-L4, and L4-L5. Trace grade 1 retrolisthesis at both L2-L3 and L3-L4. There are extensive metal hardware artifact limits evaluation of the spinal canal. Posterior soft tissue swelling with midline skin mariann and foci of soft tissue and extradural air p osteriorly in keeping with patient's recent surgery. The transpedicular screws appear satisfactorily positioned. Moderate right neuroforaminal stenosis L2-L4. The lungs show moderately advanced. There are prominent patchy density in the lower lung probably are as of atelectasis but developing infiltrate within clinically. 1.7 cm exophytic hypodensity lower pole right kidney probably a cyst. Sigmoid diverticulosis. Munguia c atheter partially visualized. IMPRESSION: 1. EXTENSIVE SURGICAL CHANGES WITH [id number] POSTERIOR FUSION. INTERBODY DEVICES FROM L2 DOWN TO L5. FRESH BONE GRAFT MATERIAL FROM T10 DOWN TO T12 FOR LATERAL OSSEOUS FUSION. MATURE LATERAL OSSEOUS FU THEODORE L4-S1. LAMINECTOMIES FROM L1 THROUGH L4. 2. NO EVIDENT HARDWARE COMPLICATION. 3. DEGENERATIVE TRACE GRADE 1 RETROLISTHESIS L2-L3, L3-L4. 4. WE'VE LABELED AN L6 VERTEBRAL BODY ON THE IMAGES. 5. Patchy atelectasis versus developing infiltrates at the lung bases. Correlate with patient's sympt oms.
--- NOTE | 2024-02-10 13:13 | XR ---
Patient: Jaswinder Grewal Ordering Physician: Unknown, Unknown ID: [id number] Phone, Pager: Phone: N/ A Pager: N/A : N/A Age/Gender: N/A, O Primary Location: N/A Procedure: XR chest 1V Study Date: 12/25 7:35:00 AM EXAMINATION TYPE: XR chest 1V DATE OF EXAM: 01/13/2024 HISTORY: Shortness of breath. COMPARISON: None. TECHNIQUE: Single view of the chest is submitted. FINDINGS: Demonstrated are scattered senescent parenchymal change. Increased density to the lung bases may reflect atelectasis although developing infiltrate is difficu lt to exclude. Right IJ central venous line with distal tip overlying the SVC. No evidence for pneumo thorax. The heart is stable. Hilar and mediastinal structures are within normal limits. Degenerative changes are seen of the dorsal spine. IMPRESSION: 1. Increased density to the lung bases may reflect atelectasis although developing infiltrate is dif ficult to exclude.
--- NOTE | 2024-02-26 10:36 | FL ---
EXAMINATION TYPE: FL guidance operating room, XR lumbar spine 2 or 3V DATE OF EXAM: 02/03/2024 8:53 AM COMPARISON: Pre Operative Images if available both CT/MRI or plain film CLINICAL INDICATION: Male, 68 years old with history of REVISION/FUSION T10 TO PELVIS; TECHNIQUE: FL guidance operating room, XR lumbar spine 2 or 3V, multiple fluoroscopic images provided for procedure. Total fluoroscopy time: 1.01m min Total submitted images to PACS: 7 DAP: 16.11 mGym2 Gycm2 uGym2 cGycm2 or equivalent. FINDINGS: Fluoroscopic images during internal fixation/arthroplasty demonstrate fixation hardware in appropriat e position. Hardware appears intact. No immediate complication identified. IMPRESSION: 1. No evidence for intraoperative complication. 2. Please see the operative/procedural note for further details. [facility], , 02/26/2024 10:33 AM
--- NOTE | 2024-03-03 19:07 | P.OP ---
Date of Procedure: 01/13/24 Description of Procedure: [facility] [address], [place] [id number] Patient Name: Jaswinder Grewal Age/Sex: 69 / Male : 1955 DATE: 01/13/24 15:52 [facility] 1 DATE OF SERVICE: 01/13/24 PREOPERATIVE DIAGNOSIS: 1. L2-3 WITH SEVERE STENOSIS 2. 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 LE WEAKNESS 4. NEUROGENIC CLAUDICATION 5. PSEUDOARTHROSIS L5-S1 6. LOW BACK PAIN 7. COMPLEX MEDICAL PATIENT POST OPERATIVE DIAGNOSIS: 1. L2-3 WITH SEVERE STENOSIS 2. 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 LE WEAKNESS 4. NEUROGENIC CLAUDICATION 5. PSEUDOARTHROSIS L5-S1 6. LOW BACK PAIN 7. COMPLEX MEDICAL PATIENT PROCEDURE: 1. L1-2 INTRADISCAL OSTEOTOMY, 3 COLUMN, FOR DEFORMITY CORRECTION 2. L2-3 INTRADISCAL OSTEOTOMY, 3 COLUMN, FOR DEFORMITY CORRECTION 3. L1-2 POSTEROLATERAL AND INTERBODY FUSION 4. L2-3 POSTEROLATERAL AND INTERBODY FUSION 5. POSTEROLATERAL INSTRUMENTED FUSION T9-L1 6. REVISION POSTEROLATERAL INSTRUMENTED FUSION L4-S1 7. SEGMENTAL INSTRUMENTATION T9-PELVIS 8. BILATERAL OPEN SACROILIAC JOINT FUSION FOR LONG CONSTRUCT STABILIZATION 9. ATTACHMENT OF THE CAUDAL END OF THE SEGMENT TO BONY PELVIS NOT SACRUM 10. L1-2, L2-3, L3-4 AND L4-5 BILATERAL LAMINECTOMY, COMPLETE FACETECTOMY AND FORAMINOTOMY FOR NEURAL ELEMENT DECOMPRESSION 11. REMOVAL OF SPINAL STIMULATOR LEADS, IRRITABLE 12. REMOVAL OF SPINAL STIMULATOR PULSE GENERATOR AND BATTERY, NON FUNCTIONAL. 13. INSERTION OF BIOMECHANICAL DEVICES L1-2 AND L2-3, CAGES X2 14. REMOVAL OF SEGMENTAL HARDWARE L4-S1 15. EXPLORATION OF FUSION L3-S1 16. USE OF [employer] NAVIGATION FOR SCREW PLACEMENT. IMPLANTS: -MELANIE EVEREST RODS AND SCREWS -GLOBUS INTRALIFT CAGES X2 LONG -MELANIE ALLOGRAFT BOATS -AUTOGRAFT -ARTHROCELL -ALLOCELL ANESTHESIA: GETA, ART LINE, CENTRAL LINE SURGEON: MELODY MENDEZ DO HEAD OF MATHEMATICS: HANNAH NAQVI PA EBL: 800-1000 cc URINE: 500 cc FLUIDS: 3500 cc COMPLICATIONS: NONE DISPOSITION: STABLE EXTUBATED TO PACU FOR RECOVERY THEN TO ICU INDICATIONS FOR PROCEDURE: Jaswinder Grewal is a 69 year old male presenting for evaluation of low back and bilateral lower extremity pain, bilateral lower extremity numbness, tingling, and weakness. It was my pleasure to have seen and examined Jaswinder. In our visit today we have had a chance to go over subjective complaints, physical examination findings and treatments including the natural course history without intervention and various interventional options. The patient's imaging demonstrates the following: XR, MRI reviewed with pt. X-rays (AP/LAT) of the thoracic and lumbar spine completed at [facility] on 01/07/2024: These demonstrate severe spondylitis from L1-S1 with previous unila teral fusion on the left at L5-S1 with loosening of the S1 screw and haloing. There is a stimulator noted in this area as well which will be removed at surgery as well. Pt also has flattened LL due to the spondylitis collapse as well as vacuum disc at L1-2, L2-3 and L3-4 noted. No fractures noted at this time. On a physical exam, Jaswinder demonstrates the following: A continued stabbing, throbbing pain across the low back that radiates down into the bilateral lower extremities. He states his leg pain is associated with numbness and tingling bilaterally. He states his leg pain has progressed since the time of his last office visit. He notes worsening bilateral leg weakness. He states his symptoms worsen after all activity. He reports severe sleep disturbances related to his ongoing pain and associated symptoms. He states his symptoms have become debilitating. I have explained to the patient that as their condition progresses it will cause further neurological deficits and eventual paralysis. Based on the patients imaging, physical exam, and the rapid progression and disabling nature of their symptoms, at this time I recommend surgery in the form of a: REVISION [id number] DECOMPRESSION AND FUSION I discussed the risk and benefits of this procedure at length with Jaswinder. The patient agreed to consider pursuing the procedure above mentioned. Prior to surgery, they should follow up with her PCP (Cardio, ID, IM etc) for clearance. Questions were invited and answered, and the patient wishes to proceed as outlined below. Currently, I am recommendin. REVISION [id number] DECOMPRESSION AND FUSION OPERATIVE NARRATIVE: Revision [id number] Decompression and fusion TAMIA The patient was seen and examined in the preoperative area. All preoperative protocols were followed. Informed consent was obtained, risks and benefits of the procedure were discussed at length. Risks including bleeding infection damage to the surrounding tissue and risk of reoperation were discussed with the patient. Risk of anesthesia up to and including was discussed with the patient. These are outlined in the risk review. They were willing to accept these risks and all the risks of surgery. The patient was given a weight-based dose of antibiotics in the form of 2 g Ancef. The patient was seen and evaluated by the anesthesia team who deemed them fit for surgery. The site was marked, the patient was willing to proceed with the procedure. The patient was transferred to the operative suite by the Department of anesthesia. They were then drifted off to sleep by the department anesthesia and GETA was performed. The patient tolerated this well. Munguia catheter was placed by nursing staff, a-traumatically. Once confirmation of lines and ventilation the patient was transferred to a prone Trios spine table very carefully. The head was secured and stable. X Ray confirmed alignment. All bony prominences including wrists, elbows, axilla, chest, hips, and thighs, and feet were padded very well. Special attention was paid to the genitalia, and these were padded accordingly. SCDs were placed on bilateral lower extremities and were connected. Arms were well padded and placed at 90/90 up and out and well padded. Safety strap and tape placed on the patient. Once in position, again we confirmed good ventilation capabilities and that lines were running appropriately. The patients lumbosacral pelvic was then exposed. Hair was removed for incision. 1010s were placed outlining the incision site. Standard alcohol was used to clean the incision site and allowed to dry. C-arm was used to bio-dustin the patient and confirm level for incision which was marked with a skin marker. Operative briefing was performed with all teams and everyone in agreement to proceed. The patient was then prepped and draped in a normal sterile fashion. Timeout was then performed, and all parties agreed with the procedure to be performed. Midline skin incision was then made over the previously bookmarked area and dissection taken down to the lumbosacral fascia which was identified and cleaned with a patel. Once midline was identified, fasciotomy was made over the SP of T9-pelvis. Subperiosteal dissection was then taken down over the lamina and facet joints and TPs were exposed and trough made posterolateral. Previous hardware was identified from L4-S1. This was removed. Screws at L5 b/l were loose.. There was motion at L3-4 and L5-S1 noted still due to pseudoarthrosis and incomplete fusion. Fusion was explored. Once hardware was removed, scar tissue was removed and exposed. TPs were then decorticated L1-S1 and sacral ala with a high speed pauly for posterolateral fusion. Dissection was taken out over the sacrum to the pelvis. SI joint identified and modified Raman starting point for pelvic screws identified as well. Retractors placed. Wound was irrigated and lateral image with penfield 4 placed at the pars of L4 confirmed levels for operation. SP clamp was then placed for the [employer] navigation tracker and secured at L2 for the first set of screws. The wound was then filled with NSS and Z-drape. A 3D Ziehm spin was then obtained and registered. Once confirmation of accuracy screws were then placed from T19-L2 using navigation. T9 was done due to poor purchase at T10. Navigated high speed pauly was used to make a airline pilot hole followed by a navigated awl-tap passed through the pedicle into the body. A ball tip probe then confirmed within the pedicle. Screws then measured and placed using a navigated screwdriver. After screws were placed from T19-L2 the tracker was replaced at S1 and a second 3D Ziehm spin was then obtained and registered. Once confirmation of accuracy screws were then placed from L3-Pelvis using navigation. AP image confirmed safe placement of screws. Lateral images as well as navigation were then used to pl solis bilateral pelvic screws. Starting point selected just lateral to the SI joint and S2 pseudo facet. Lateral image taken and pauly used to make the airline pilot hole. Navigated awl tap was then passed. 30 deg/30 deg iliac oblique then taken to confirm within the teardrop and ball tip probe used to probe good bone. Screw was then measured and selected and placed under lateral imaging. This was repeated on the contralateral side. Bilateral open SI joint fusion was then done using [employer] and SiRos SIJ screws. Navigated pauly follwed by navigated tap and then screw were placed optimally in a secondary S2Ai trajectory. The SIJs were then decorticated thoroughly bilaterally using high- speed bur. Screws were then visualized under AP and were safe. Inlet outlet views also confirmed good placement of screws as well as SI screws. Screws were then tested, and reliably tested screws tested above 17 mA. The wound was irrigated and attention was turned to decompression, correction and interbody fusion. At the deformed levels, L1-2 and L2-3, bilateral laminectomy, complete facetectomy and foraminotomies were performed using high speed bur, Kerrison rongeur. There was exuberant bone formation, osteophytes and scar tissue surrounding these joints as well as the dura. Once exposed the neural elements were protected and an intradiscal osteotomy, 3 column, was performed for deformity correction at L2-3 Osteotome was used to make osteotomy in L2 and L3 and for complete disc removal. A box osteotome was then used to widen this bilaterally. This was passed into the anterior 1/3 of the vertebral body. This allowed for loosening of this level and correction. Cage was then selected based on shaving and trials. Bleeding endplates were encountered and cartilage removed. Autograft, allograft were then placed anterior to the cage. The cage was then impacted into place under lateral imaging while protecting neural elements. The cage was then expanded into position and showed good lift and correction. Mandaen of lordosis and height achieved. Meticulous hemostasis then performed. Cage was backfilled with DBM and the area irrigated. We then proceeded to the L1-2 level. At L1-2 revision decompression bilateral laminectomy, complete facetectomy and foraminotomies were performed using high speed bur, Kerrison rongeur. There was exuberant bone formation, osteophytes and scar tissue surrounding these joints as well as the dura. Once exposed the neural elements were protected and an intradiscal osteotomy, 3 column, was performed for deformity correction at L1-2 Osteotome was used to make osteotomy in L1 and L2 and for complete disc removal. A box osteotome was then used to widen this bilaterally. This was passed into the anterior 1/3 of the vertebral body. This allowed for loosening of this level and correction. Cage was then selected based on shaving and trials. Bleeding endplates were encountered and cartilage removed. Autograft, allograft were then placed anterior to the cage. The cage was then impacted into place under lateral imaging while protecting neural elements. The cage was then expanded into position and showed good lift and correction. Mandaen of lordosis and height achieved. Meticulous hemostasis then performed. At L3-4, revision bilateral laminectomy, facetectomy and foraminotomies were done using similar methods as described above. This allowed for complete decompression of this area. The wound was then irrigated. IONM remained stable. Pt remained stable per anesthesia. We then proceeded to wesley placement and correction. We then turned our attention to the removal of the patient's irritable and non- functional spinal stimulator. The leads were found entering at T11-T12 and were easily removed. The wires were then cut. The battery and pulse pack were found subq on the patients left buttock and skin incision made over this area. The pack was removed along with the remainder of the wires. The capsule was then resected. The wound was copiously irrigated with NSS. Attention was then drawn to wesley placement and further reduction. Rods were selected, measured, cut and bent to appropriate lordosis. They were then secured into pelvic screws b/l. Sequential reduction then done into each screw and set screw placed. Set screws were then final tightened and lateral image showed good lordosis reduction with increase in LL. Once rods were secured, cross links were selected and placed and final tightened. The wound was then irrigated with 2L betadine solution, 2L Iricept solution followed by 3L Ancef irrigation, 3L gentamicin irrigation and 3L NSS. Surgicel was then placed on the dura, which was inspected and had no injury. Then, in the posterolateral gutter was placed, Autograft and allograft. This was also placed in the SI joints b/l for fusion. This was impacted into position and surgical placed over it. 2g Vanco powder was then placed deep in the wound. A deep, subfascial drain was placed and secured with a stitch. We then proceeded with layered closure. #1 PDS placed in the deep fascia. 0 Vicryl placed in the deep subq, 2-0 placed in the superficial subq and mariann placed in the skin. The wound edges approximated very well. The wound was then cleaned with ETOH and dressed with Optifoam dressing, drain sponges and tegaderms. Drains sewed into position. IONM confirmed no changes. The patient was then transferred off the [facility] spine table to their hospital bed a-traumatically. Drains continued to hold suction. The patient was then extubated and transferred to the PACU in stable condition having tolerated the procedure with no complications. He will be sent to the ICU once awake and stable per anesthesia and PACU staff. ICU staff were notified as well as ICU attending. Signed and authenticated by: Jan 13, 2024 8:45PM EDT DO Gurinder Nicole Weikert [facility] [address], [address] [address] This document is confidential, intended only for the named recipient(s) and may contain information that is privileged or exempt from disclosure under applicable law. If you are not the intended recipient(s), you are notified that the dissemination, distribution or copying of this information is strictly prohibited. If you received this message in error, please notify the sender then delete this message.
== END 2024-01-17 13:45 | disposition home or self-care (01) | DRG 454 ==
LOC: 2SICU 15:20
PROVIDERS: ADMIT Orthopaedic Surgery; ATTEND Orthopaedic Surgery
PROC: 0RG7071 Fusion of 2 to 7 Thoracic Vertebral Joints with Autologous Tissue Substitute, Posterior Approach, Posterior Column, Open Approach (ICD-10-PCS; 2024-01-13)
PROC: 00PU0MZ Removal of Neurostimulator Lead from Spinal Canal, Open Approach (ICD-10-PCS; 2024-01-13)
PROC: 0SG1071 Fusion of 2 or more Lumbar Vertebral Joints with Autologous Tissue Substitute, Posterior Approach, Posterior Column, Open Approach (ICD-10-PCS; 2024-01-13)
PROC: 0SP704Z Removal of Internal Fixation Device from Right Sacroiliac Joint, Open Approach (ICD-10-PCS; 2024-01-13)
PROC: 0SP804Z Removal of Internal Fixation Device from Left Sacroiliac Joint, Open Approach (ICD-10-PCS; 2024-01-13)
PROC: 0SP304Z Removal of Internal Fixation Device from Lumbosacral Joint, Open Approach (ICD-10-PCS; 2024-01-13)
PROC: 0SP004Z Removal of Internal Fixation Device from Lumbar Vertebral Joint, Open Approach (ICD-10-PCS; 2024-01-13)
PROC: 01NB0ZZ Release Lumbar Nerve, Open Approach (ICD-10-PCS; 2024-01-13)
PROC: 00NY0ZZ Release Lumbar Spinal Cord, Open Approach (ICD-10-PCS; 2024-01-13)
PROC: 0RGA071 Fusion of Thoracolumbar Vertebral Joint with Autologous Tissue Substitute, Posterior Approach, Posterior Column, Open Approach (ICD-10-PCS; 2024-01-13)
PROC: 0SH804Z Insertion of Internal Fixation Device into Left Sacroiliac Joint, Open Approach (ICD-10-PCS; 2024-01-13)
PROC: 0SH704Z Insertion of Internal Fixation Device into Right Sacroiliac Joint, Open Approach (ICD-10-PCS; 2024-01-13)
PROC: 0ST20ZZ Resection of Lumbar Vertebral Disc, Open Approach (ICD-10-PCS; 2024-01-13)
PROC: 0ST40ZZ Resection of Lumbosacral Disc, Open Approach (ICD-10-PCS; 2024-01-13)
PROC: 8E0WXBF Computer Assisted Procedure of Trunk Region, With Fluoroscopy (ICD-10-PCS; 2024-01-13)
PROC: 4A133B1 Monitoring of Arterial Pressure, Peripheral, Percutaneous Approach (ICD-10-PCS; 2024-01-13)
PROC: 4A133J1 Monitoring of Arterial Pulse, Peripheral, Percutaneous Approach (ICD-10-PCS; 2024-01-13)
PROC: 03HY32Z Insertion of Monitoring Device into Upper Artery, Percutaneous Approach (ICD-10-PCS; 2024-01-13)
PROC: 0JPT0MZ Removal of Stimulator Generator from Trunk Subcutaneous Tissue and Fascia, Open Approach (ICD-10-PCS; 2024-01-13)
PROC: 0SG10AJ Fusion of 2 or more Lumbar Vertebral Joints with Interbody Fusion Device, Posterior Approach, Anterior Column, Open Approach (ICD-10-PCS; principal; 2024-01-13 07:30)
DX: M96.0 Pseudarthrosis after fusion or arthrodesis (principal); D62 Acute posthemorrhagic anemia; J84.9 Interstitial pulmonary disease, unspecified; M51.17 Intervertebral disc disorders with radiculopathy, lumbosacral region; K59.00 Constipation, unspecified; M47.816 Spondylosis without myelopathy or radiculopathy, lumbar region; M48.062 Spinal stenosis, lumbar region with neurogenic claudication; I25.10 Atherosclerotic heart disease of native coronary artery without angina pectoris; J43.9 Emphysema, unspecified; N18.30 Chronic kidney disease, stage 3 unspecified; I12.9 Hypertensive chronic kidney disease with stage 1 through stage 4 chronic kidney disease, or unspecified chronic kidney disease; R26.9 Unspecified abnormalities of gait and mobility; Z87.891 Personal history of nicotine dependence; E78.5 Hyperlipidemia, unspecified; Z88.5 Allergy status to narcotic agent; Z87.19 Personal history of other diseases of the digestive system
CPT/HCPCS: 71045; 72100; 72128; 72131; 86850; 86900; 86901; 86920; 94640; 94760

== ENCOUNTER → 2024-01-23 | Outpatient (CLI) | payer OTHER | END | disposition home or self-care (01) | LOC: LABPAT 10:49 | PROVIDERS: ATTEND Orthopaedic Surgery | DX: Z01.812 Encounter for preprocedural laboratory examination (principal); M51.36 Other intervertebral disc degeneration, lumbar region; M48.061 Spinal stenosis, lumbar region without neurogenic claudication; Z22.322 Carrier or suspected carrier of Methicillin resistant Staphylococcus aureus | CPT/HCPCS: 86850; 86900; 86901 ==

== ENCOUNTER → 2024-11-04 | Outpatient (CLI) | payer OTHER ==
--- NOTE | 2024-11-04 18:16 | CTL ---
EXAMINATION TYPE: CT Low Dose Lung DATE OF EXAM: 11/04/2024 9:22 AM COMPARISON: 08/13/2023 SCREENING VISIT: Subsequent CT DIAGNOSTIC QUALITY: Satisfactory CLINICAL INDICATION: Male, 69 years old with history of Z12.2 ENCNTR SCREEN FOR MALIGNANT NEOPLASM OF RESP, Former smoker, quit 2023, was 2 ppd x 50 years, hx COPD, chronic bronchitis, emphysema, Lung c ancer screening, History of tobacco use. TECHNIQUE: Low dose computed tomography scan was performed through the chest at 1 mm thick sections a nd reconstructed images in the coronal plane at 1 mm thick sections. Contrast used: mL of , (none if empty) Oral contrast used: (none if empty) CT DLP: 100.9 mGycm, Automated exposure control for dose reduction was used. CT CTDI: 2.6 mGy, Automated exposure control for dose reduction was used. FINDINGS: LUNG NODULES: Present, detailed below: 1. There is a 0.3 cm nodule in the periphery of the right upper lung field. Series 4 image 110. LUNGS: COPD: Severity: Mild Fibrosis: Severity: None Lymph nodes: No enlarged lymphadenopathy. Shotty mediastinal lymphadenopathy is present. Other findings: None RIGHT PLEURAL SPACE: Effusion: None Calcification: None Thickening: None Pneumothorax: None LEFT PLEURAL SPACE: Effusion: None Calcification: None Thickening: None Pneumothorax: None HEART: Other: Ascending thoracic aorta at the level the main pulmonary artery measures 3.4 cm. The main pul monary artery at the bifurcation measures 2.7 cm. Heart Size: Normal Coronary calcification: Moderate coronary artery calcifications present. Pericardial effusion: None OTHER FINDINGS: Upper abdomen: Normal Bony thorax: Normal Supraclavicular region: Normal IMPRESSION: 1. Tiny punctate nodule periphery right lung. 2. No suspicious changes to suggest primary or metastatic neoplasm FOLLOW UP CT CHEST RECOMMENDATION: Low dose CT chest [address] LUNG RAD: Lung-Rad 2 Benign Appearance or Behavior [facility], Workstation: [id number], 11/04/2024 6:14 PM
== END | disposition home or self-care (01) ==
LOC: RADCTMAIN 08:16
PROVIDERS: ATTEND Internal Medicine Pulmonary Disease
DX: Z12.2 Encounter for screening for malignant neoplasm of respiratory organs (principal); R91.1 Solitary pulmonary nodule; Z87.891 Personal history of nicotine dependence
CPT/HCPCS: 71271